=== PATIENT | male | born 1955 | race Caucasian/White ===

== ENCOUNTER → 2018-07-02 22:55 | Outpatient (CLI) | payer OTHER, SELFPAY | PROVIDERS: Family Provider Family Medicine; PCP Family Medicine; Visit Provider Nurse Practitioner | DX: E03.9 Hypothyroidism, unspecified (principal); E78.5 Hyperlipidemia, unspecified ==

== ENCOUNTER → 2018-07-08 20:56 | Outpatient (CLI) | payer OTHER, SELFPAY ==
[2018-07-08 21:13] LABS: Absolute Lymphocyte Count 1.51 X10^3/ul (0.83-4.51); Absolute Neutrophil Count 4.2 X10^3/uL (2.0-7.7); Basophil# 0.02 X10^3/uL; Basophil% 0.3 % (0-1); Eosinophils% 1.6 % (0-5); Hematocrit 41.8 % (40-54); Hemoglobin 14.6 g/dl (13.0-16.5); Lymphocyte # 1.51 X10^3/ul (4.0); Lymphocyte % 23.4 % (19-41); Mean Corp Hgb Conc 34.9 g/gl (32-36); Mean Corpuscular Hgb 31.1 pg (27.0-32.0); Mean Corpuscular Volume 88.9 fL (80-94); Mean Platelet Vol. 9.8 fl (6.2-12.0); Monocyte# 0.63 X10^3/uL; Monocyte% 9.8 % (0-10); Neutrophil # 4.18 X10^3/uL (2.7-7.7); Neutrophil % 64.7 % (47-70); POSITIVE COUNT NO; POSITIVE DIFFERENTIAL NO; POSITIVE MORPHOLOGY NO; Platelet Count 224 K/mm3 (150-450); RBC Distribution Width SD 41.9 fl (35.1-43.9); White Blood Count 6.5 K/mm3 (4.4-11.0)
[2018-07-08 21:24] LABS: Cholesterol 137 mg/dL (200); High Density Lipoprotein 41 mg/dL; Triglycerides 197 mg/dL; Very Low Density Lipoprotein 39 mg/dL (5-40)
== END ==
PROVIDERS: Visit Provider Nurse Practitioner
DX: E78.2 Mixed hyperlipidemia (principal)
CPT/HCPCS: 80061; 85025

== ENCOUNTER → 2018-11-05 22:47 | Outpatient (CLI) | payer OTHER, SELFPAY ==
[2018-11-05 15:46] VITALS: BMI 34.4
[2018-11-05 23:28] LABS: Thyroid Stim Hormone (TSH) 2.71 uIU/mL (0.358-3.74)
== END ==
PROVIDERS: Family Provider Family Medicine; PCP Family Medicine; Referring Provider Nurse Practitioner; Visit Provider Nurse Practitioner
DX: E03.9 Hypothyroidism, unspecified (principal)
CPT/HCPCS: 84443

== ENCOUNTER 2018-12-22 05:26 | Day surgery (SDC) | payer OTHER, SELFPAY ==
[2018-11-06 14:45] VITALS: BMI 34.4
[2018-12-22] VITALS (7 sets, daily range): BP systolic 87–120; BP diastolic 60–73; PULSE 62–71; RESP 16–18; TEMP 35.9–36.4; O2SAT 91–97; BMI 32.9
--- NOTE | 2018-12-22 06:02 | PCM.HP.STD ---
Problem List (1) Screening for intestinal cancer Status: Acute History of Present Illness Date of Admission: 12/22/18 The patient is a 63 year old M who presents for screening colonoscopy. His previous colonoscopy was 10 years ago. He denies any bright red blood per rectum or melena. No abdominal pain. Claims that his stools are more of a pasty consistency but this is been chronic. He denies any acute chest cardiac or lung problems. Denies DVT. States that he otherwise is enjoying good health Past Medical History Medical History: Medical History (Last Reviewed 11/05/18 @ 14:26 by Suma Dickerson) Hyperthyroidism E05.90 Hypothyroidism E03.9 Allergies latex Allergy (Verified 12/18/18 11:23) Hives Home Medications: Ambulatory Orders Medication Instructions Recorded atorvastatin 20 mg tablet 20 mg PO DAILY 07/02/18 omega-3 fatty acids 1,000 mg 1,000 mg PO DAILY 07/02/18 capsule aspirin 81 mg tablet,delayed 81 mg PO DAILY 11/06/18 release levothyroxine 100 mcg tablet 100 mcg PO DAILY #90 tab 11/26/18 Smoking Status: Current every day smoker Tobacco Use: Chew Review of Systems Constitutional: Denies: Anorexia HEENT: Denies: Difficulty Swallowing Cardiovascular: Denies: Chest Pain, Claudication Respiratory: Denies: Cough Gastrointestinal: Denies: Abdominal Pain Genitourinary: Denies: Dysuria Neurological: Denies: Balance problems Endocrine: Denies: Change in Body Habitus VTE Information - Inpt Only VTE Present on Admission: No Patient Problems: Active and Suspected Problems (Last Reviewed 11/05/18 @ 14:26 by Suma Dickerson) Screening for intestinal cancer (Acute) - Physical Exam General: Alert, Oriented x3, Cooperative, No apparent distress HEENT: Atraumatic Oral: Moist Mucosa Neck: Supple Lungs: Clear to auscultation Cardiovascular: Regular rate, Regular Rhythm Abdomen: Bowel Sounds Present, Soft, Non Tender, Non-Distended Extremities: No Calf Tenderness Psych/Mental Status: Normal Affect Vital Signs Temp Pulse Resp BP Pulse Ox 97.5 F L 71 16 106/71 97 12/22/18 05:49 12/22/18 05:49 12/22/18 05:49 12/22/18 05:49 12/22/18 05:49 Oxygen Delivery Method Room Air Weight: 242 lb 15.19 oz Body Mass Index (BMI) 32.9 Assessment/Plan All Active Problems (Last Reviewed 11/05/18 @ 14:26 by Suma Dickerson) Screening for intestinal cancer (Acute) Acute pain of left knee (Acute) PAC (premature atrial contraction) (Acute) Hyperlipemia (Acute) Hypothyroid (Acute) I am recommending the patient a colonoscopy with possible biopsy or polypectomy as indicated. He is aware of the technique, benefits, risks, alternatives. He has had an opportunity to ask and have questions answered. He presents via our open access program. We will proceed as noted. Javier Schmitz M.D., F.A.C.S.
--- NOTE | 2018-12-22 06:30 | COLBX_PTH ---
PATIENT: SARA ORDAZ LOC: EN U#:[id number] AGE/SX: 63/M ROOM: RE12/22/[address]: Dr. Javier Schmitz MD : 1955 BED: DIS: 12/22/2018 SPEC #: [id number] RECD: 12/22/18 08:18 STATUS: CHARLA NIRMALA #: [id number] PRAVEEN: 12/22/18 06:[address]: Javier Schmitz DEPT: SURGICAL PATHOLOGY RECD BY: Mehul Carver ENTERED: 12/22/18 09:27 SP TYPE: COLON BX OT DR: Clarita Iyer, PRINTING SIGN MACHINE OPERATOR-C Tissues: Transverse colon Procedures: Surgery Specimen Level IV HEADER OPERATION: Colonoscopy - open access (MOD) PRE-OP DIAGNOSIS: Screening TISSUE SUBMITTED: Biopsy polyp distal transverse MICROSCOPIC DIAGNOSIS Polyp distal transverse colon, biopsy: Tubular adenoma. REID:[email or web address] 12/23/18 MICROSCOPIC DESCRIPTION Slides are reviewed. GROSS DESCRIPTION Received in fixative is one container labeled with the patient's name and designated biopsy polyp distal transverse. The specimen consists of one irregular fragment of light cazares soft tissue that measures 0.3 x 0.3 x 0.1 cm. The specimen is totally submitted in one cassette. / REID:[email or web address] 12/22/18 TC:1 CPT: 69205
--- NOTE | 2018-12-22 06:45 | OP.ENDO_ITS ---
Patient Name: Marino Heaton Procedure Date: 12/22/2018 6:01 AM Date of : 1955 Age: 63 Procedure: Colonoscopy Indications: Screening for colorectal malignant neoplasm Providers: Javier Schmitz MD Medicines: Midazolam 3.5 mg IV, Meperidine 100 mg IV Patient Profile: Last Colonoscopy: 10 years ago. Complications: No immediate complications. Procedure: Pre-Anesthesia Assessment: - Prior to the procedure, a History and Physical was performed, and patient medications and allergies were reviewed. The patient's tolerance of previous anesthesia was also reviewed. The risks and benefits of the procedure and the sedation options and risks were discussed with the patient. All questions were answered, and informed consent was obtained. Prior Anticoagulants: The patient has taken no previous anticoagulant or antiplatelet agents. ASA Grade Assessment: II - A patient with mild systemic disease. After reviewing the risks and benefits, the patient was deemed in satisfactory condition to undergo the procedure. After I obtained informed consent, the scope was passed under direct vision. Throughout the procedure, the patient's blood pressure, pulse, and oxygen saturations were monitored continuously. The adult colonoscope was introduced through the anus and advanced to the cecum, identified by appendiceal orifice and ileocecal valve. The colonoscopy was performed without difficulty. The patient tolerated the procedure well. The quality of the bowel preparation was good. The ileocecal valve and the appendiceal orifice were photographed. Moderate Sedation: Moderate (conscious) sedation was personally administered by the endoscopist. The following parameters were monitored: oxygen saturation, heart rate, blood pressure, and response to care. Total physician intraservice time was 15 minutes. Scope In: 6:26:08 AM Scope Withdrawal Time 0 hours 10 minutes 49 seconds Scope Out: 6:41:40 AM Total Procedure Duration Time 0 hours 15 minutes 32 seconds Findings: The perianal and digital rectal examinations were normal. Pertinent negatives include normal prostate (size, shape, and consistency). A 3 mm polyp was found in the distal transverse colon. The polyp was sessile. The polyp was removed with a cold biopsy forceps. Resection and retrieval were complete. Multiple diverticula were found in the sigmoid colon and descending colon. The exam was otherwise without abnormality. Impression: - One 3 mm polyp in the distal transverse colon, removed with a cold biopsy forceps. Resected and retrieved. - Diverticulosis in the sigmoid colon and in the descending colon. - The examination was otherwise normal. Recommendation: - Discharge patient to home. - Resume previous diet. - Repeat colonoscopy in 5 years for surveillance based on pathology results. - Telephone my office for pathology results in 1 week. - Continue present medications. Procedure Code(s): --- Professional --- 31123, Colonoscopy, flexible; with biopsy, single or multiple 97290, 59, Moderate sedation services provided by the same physician or other qualified health ambulatory care performing the diagnostic or therapeutic service that the sedation supports, requiring the presence of an independent trained observer to assist in the monitoring of the patient's level of consciousness and physiological status; initial 15 minutes of intraservice time, patient age 5 years or older Diagnosis Code(s): --- Professional --- Z12.11, Encounter for screening for malignant neoplasm of colon D12.3, Benign neoplasm of transverse colon (hepatic flexure or splenic flexure) K57.30, Diverticulosis of large intestine without perforation or abscess without bleeding CPT copyright 2017 [employer]. All rights reserved. The codes documented in this report are preliminary and upon solar installer pv review may be revised to meet current compliance requirements. Javier Schmitz MD 12/22/2018 6:45:44 AM This report has been signed electronically. Number of Addenda: 0 Note Initiated On: 12/22/2018 6:01 AM
== END 2018-12-22 07:23 | disposition home or self-care (01) ==
LOC: EN 05:27 → AC 05:27
PROVIDERS: Family Provider Nurse Practitioner; PCP Nurse Practitioner; Referring Provider Surgery; Visit Provider Surgery
PROC: 0DJD8ZZ Inspection of Lower Intestinal Tract, Via Natural or Artificial Opening Endoscopic (ICD-10-PCS; CPT 45378; principal; 2018-12-22 06:25)
DX: Z12.11 Encounter for screening for malignant neoplasm of colon (principal); D12.3 Benign neoplasm of transverse colon; K57.30 Diverticulosis of large intestine without perforation or abscess without bleeding; I49.1 Atrial premature depolarization; E78.5 Hyperlipidemia, unspecified; E03.9 Hypothyroidism, unspecified; Z79.82 Long term (current) use of aspirin; Z79.899 Other long term (current) drug therapy; F17.220 Nicotine dependence, chewing tobacco, uncomplicated
CPT/HCPCS: 45380; 88305; 99152; 99153; J7120

== ENCOUNTER → 2019-01-04 22:45 | Outpatient (CLI) | payer OTHER, SELFPAY ==
[2018-12-22 05:49] VITALS: BMI 32.9
[2019-01-04 23:00] LABS: Cholesterol 162 mg/dL (200); High Density Lipoprotein 35 mg/dL; Triglycerides 356 mg/dL; Very Low Density Lipoprotein 71 mg/dL (5-40)
== END ==
PROVIDERS: Family Provider Nurse Practitioner; PCP Nurse Practitioner; Referring Provider Nurse Practitioner; Visit Provider Nurse Practitioner
DX: E78.5 Hyperlipidemia, unspecified (principal)
CPT/HCPCS: 80061

== ENCOUNTER → 2019-02-11 21:52 | Outpatient (CLI) | payer OTHER, SELFPAY ==
[2019-02-11 18:52] VITALS: BMI 32.9
[2019-02-11 22:14] LABS: Thyroid Stim Hormone (TSH) 3.06 uIU/mL (0.358-3.74)
== END ==
PROVIDERS: Family Provider Nurse Practitioner; PCP Nurse Practitioner; Referring Provider Nurse Practitioner; Visit Provider Nurse Practitioner
DX: E03.9 Hypothyroidism, unspecified (principal)
CPT/HCPCS: 84443

== ENCOUNTER → 2019-03-23 | Outpatient (CLI) | payer OTHER, SELFPAY ==
[2019-02-11 18:52] VITALS: BMI 32.9
[2019-03-23 23:56] LABS: Thyroid Stim Hormone (TSH) 2.98 uIU/mL (0.358-3.74)
== END | disposition home or self-care (01) ==
PROVIDERS: Family Provider Nurse Practitioner; PCP Nurse Practitioner; Referring Provider Nurse Practitioner; Visit Provider Nurse Practitioner
DX: E03.9 Hypothyroidism, unspecified (principal)
CPT/HCPCS: 84443

== ENCOUNTER → 2019-11-23 21:30 | Outpatient (CLI) | payer OTHER, SELFPAY ==
[2019-11-23 16:12] VITALS: BMI 35.1
[2019-11-23 21:50] LABS: Absolute Lymphocyte Count 1.26 X10^3/uL (0.83-4.51); Absolute Neutrophil Count 4.5 X10^3/uL (2.0-7.7); Basophil# 0.03 X10^3/uL; Basophil% 0.5 % (0-1); Eosinophil# 0.07 X10^3/uL; Eosinophils% 1.1 % (0-5); Hematocrit 41.1 % (40-54); Lymphocyte # 1.26 X10^3/ul (4.0); Lymphocyte % 19.4 % (19-41); Mean Corp Hgb Conc 34.1 g/dL (32-36); Mean Corpuscular Hgb 29.9 pg (27.0-32.0); Mean Corpuscular Volume 87.6 fL (80-94); Mean Platelet Vol. 10.8 fl (6.2-12.0); Monocyte% 9.3 % (0-10); NRBC Flagged by Analyzer 0 % (0-5); Neutrophil % 69.4 % (47-70); Platelet Count 211 K/mm3 (150-450); RBC Distribution Width CV 12.6 % (11.6-14.6); RBC Distribution Width SD 40.4 fl (35.1-43.9); Red Blood Count 4.69 M/mm3 (4.6-6.2); White Blood Count 6.5 K/mm3 (4.4-11.0)
[2019-11-23 22:11] LABS: ALB/GLOB Ratio 1.2 RATIO (0.9-2.4); AST(SGOT) 14 U/L (15-37); Alanine Aminotransfer ALT/SGPT 31 U/L (16-61); Albumin, Serum 3.8 g/dL (3.2-5.0); Alkaline Phosphatase 98 U/L (45-117); Anion Gap 5 (5-15); BUN 20 mg/dL (7-18); BUN/Creat Ratio 16.9 RATIO (10-20); Chloride 108 mmol/L (98-107); Cholesterol 154 mg/dL (200); Creatinine, Serum 1.18 mg/dL (0.70-1.30); EST Glomerular Filtration Rate 66 mL/min (>60); Est Glom Filt Rate - Afr Amer 80 mL/min (>60); Globulin 3.3 g/dL (2.2-4.2); Glucose 95 mg/dL (74-106); High Density Lipoprotein 41 mg/dL; Potassium 4.3 mmol/L (3.5-5.1); Protein, Total 7.1 g/dL (6.4-8.2); Sodium Level 140 mmol/L (136-145); Thyroid Stim Hormone (TSH) 5.72 uIU/mL (0.358-3.74); Triglycerides 131 mg/dL; Very Low Density Lipoprotein 26 mg/dL (5-40)
== END ==
PROVIDERS: Family Provider Nurse Practitioner; PCP Nurse Practitioner; Referring Provider Nurse Practitioner; Visit Provider Nurse Practitioner
DX: E03.9 Hypothyroidism, unspecified (principal); E78.5 Hyperlipidemia, unspecified; R35.0 Frequency of micturition
CPT/HCPCS: 80053; 80061; 84153; 84443; 85025; G0103

== ENCOUNTER → 2020-01-05 | Outpatient (CLI) | payer OTHER, SELFPAY ==
[2020-01-05 15:45] VITALS: BMI 34.4
[2020-01-05 22:44] LABS: Thyroid Stim Hormone (TSH) 1.13 uIU/mL (0.358-3.74)
== END | disposition home or self-care (01) ==
PROVIDERS: PCP Nurse Practitioner; Referring Provider Nurse Practitioner; Visit Provider Nurse Practitioner
DX: E03.9 Hypothyroidism, unspecified (principal)
CPT/HCPCS: 84443

== ENCOUNTER → 2020-12-14 | Outpatient (CLI) | payer OTHER, SELFPAY ==
[2015-06-17 19:37] VITALS: BMI 27.1
[2020-12-14 22:42] LABS: Absolute Lymphocyte Count 1.34 X10^3/uL (0.83-4.51); Absolute Neutrophil Count 5.1 X10^3/uL (2.0-7.7); Basophil# 0.04 X10^3/uL; Basophil% 0.6 % (0-1); Eosinophil# 0.08 X10^3/uL; Eosinophils% 1.1 % (0-5); Hematocrit 43.4 % (40-54); Hemoglobin 14.4 g/dL (13.0-16.5); Lymphocyte # 1.34 X10^3/ul (4.0); Lymphocyte % 18.8 % (19-41); Mean Corp Hgb Conc 33.2 g/dL (32-36); Mean Corpuscular Hgb 29.3 pg (27.0-32.0); Mean Corpuscular Volume 88.4 fL (80-94); Mean Platelet Vol. 10.5 fl (6.2-12.0); Monocyte# 0.61 X10^3/uL; Monocyte% 8.5 % (0-10); NRBC Flagged by Analyzer 0 % (0-5); Neutrophil # 5.06 X10^3/uL (2.7-7.7); Neutrophil % 70.9 % (47-70); Platelet Count 235 K/mm3 (150-450); RBC Distribution Width CV 12.4 % (11.6-14.6); RBC Distribution Width SD 40.4 fl (35.1-43.9); Red Blood Count 4.91 M/mm3 (4.6-6.2); White Blood Count 7.1 K/mm3 (4.4-11.0)
[2020-12-14 23:06] LABS: ALB/GLOB Ratio 1.3 RATIO (0.9-2.4); AST(SGOT) 20 U/L (15-37); Alanine Aminotransfer ALT/SGPT 37 U/L (16-61); Albumin, Serum 3.9 g/dL (3.2-5.0); Alkaline Phosphatase 106 U/L (45-117); Anion Gap 5 (5-15); BUN 21 mg/dL (7-18); BUN/Creat Ratio 16.9 RATIO (10-20); Calcium,Total 8.6 mg/dL (8.5-10.1); Chloride 108 mmol/L (98-107); Cholesterol 165 mg/dL (200); Creatinine, Serum 1.24 mg/dL (0.70-1.30); EST Glomerular Filtration Rate 63 mL/min (>60); Est Glom Filt Rate - Afr Amer 76 mL/min (>60); Globulin 3.1 g/dL (2.2-4.2); Glucose 91 mg/dL (74-106); High Density Lipoprotein 41 mg/dL; Potassium 3.9 mmol/L (3.5-5.1); Sodium Level 140 mmol/L (136-145); Thyroid Stim Hormone (TSH) 1.29 uIU/mL (0.358-3.74); Triglycerides 99 mg/dL; Very Low Density Lipoprotein 20 mg/dL (5-40)
== END | disposition home or self-care (01) ==
PROVIDERS: PCP Family Medicine; Referring Provider Nurse Practitioner; Visit Provider Nurse Practitioner
DX: E78.5 Hyperlipidemia, unspecified (principal); E03.9 Hypothyroidism, unspecified
CPT/HCPCS: 80053; 80061; 84443; 85025

== ENCOUNTER → 2021-09-12 | Outpatient (CLI) | payer OTHER, SELFPAY ==
[2021-09-12 00:08] LABS: Absolute Lymphocyte Count 1.73 X10^3/uL (0.83-4.51); Absolute Neutrophil Count 5.4 X10^3/uL (2.0-7.7); Basophil# 0.04 X10^3/uL; Basophil% 0.5 % (0-1); Eosinophil# 0.08 X10^3/uL; Hematocrit 40.1 % (40-54); Hemoglobin 13.6 g/dL (13.0-16.5); Lymphocyte # 1.73 X10^3/ul (0.83-4.51); Lymphocyte % 21.8 % (19-41); Mean Corp Hgb Conc 33.9 g/dL (32-36); Mean Corpuscular Volume 88.5 fL (80-94); Mean Platelet Vol. 10.7 fl (6.2-12.0); Monocyte# 0.64 X10^3/uL; Monocyte% 8.1 % (0-10); NRBC Flagged by Analyzer 0 % (0-5); Neutrophil # 5.41 X10^3/uL (2.7-7.7); Neutrophil % 68.3 % (47-70); Platelet Count 189 K/mm3 (150-450); RBC Distribution Width CV 12.9 % (11.6-14.6); RBC Distribution Width SD 42.1 fl (35.1-43.9); Red Blood Count 4.53 M/mm3 (4.6-6.2); White Blood Count 7.9 K/mm3 (4.4-11.0)
[2021-09-12 02:14] LABS: AST(SGOT) 17 U/L (15-37); Alanine Aminotransfer ALT/SGPT 21 U/L (16-61); Albumin, Serum 3.3 g/dL (3.2-5.0); Alkaline Phosphatase 110 U/L (45-117); Anion Gap 6 (5-15); BUN 17 mg/dL (7-18); BUN/Creat Ratio 13.8 RATIO (10-20); Calcium,Total 8.7 mg/dL (8.5-10.1); Chloride 107 mmol/L (98-107); Cholesterol 146 mg/dL (200); Creatinine, Serum 1.23 mg/dL (0.70-1.30); EST Glomerular Filtration Rate 63 mL/min (>60); Est Glom Filt Rate - Afr Amer 76 mL/min (>60); Globulin 3.3 g/dL (2.2-4.2); Glucose 119 mg/dL (74-106); High Density Lipoprotein 34 mg/dL; Potassium 3.8 mmol/L (3.5-5.1); Protein, Total 6.6 g/dL (6.4-8.2); Sodium Level 139 mmol/L (136-145); Thyroid Stim Hormone (TSH) 1.36 uIU/mL (0.358-3.74); Triglycerides 155 mg/dL; Very Low Density Lipoprotein 31 mg/dL (5-40)
== END ==
PROVIDERS: PCP Nurse Practitioner; Referring Provider Nurse Practitioner; Visit Provider Nurse Practitioner
DX: E78.5 Hyperlipidemia, unspecified (principal); E03.9 Hypothyroidism, unspecified; R00.2 Palpitations; R06.02 Shortness of breath
CPT/HCPCS: 80053; 80061; 84443; 85025; 86141

== ENCOUNTER → 2021-09-13 11:34 | Outpatient (CLI) | payer OTHER, SELFPAY ==
--- NOTE | 2021-09-13 11:38 | RAD_ITS ---
STUDY: X-RAY CHEST REASON FOR EXAM: Male, 66 years old. Angina pectoris / shortness of breath TECHNIQUE: PA and lateral views of the chest. COMPARISON: None. FINDINGS: The lungs are clear and expanded. There is no demonstrated pleural abnormality. Normal size heart. Normal mediastinum and ean. Normal visualized pulmonary arteries. Normal visualized aortic arch and descending thoracic aorta. Normal visualized thoracic spine. Normal visualized ribs, clavicles, and shoulders. There is no demonstrated abnormality of the visualized soft tissue structures of the upper abdomen. RAD/Chest PA and Lateral IMPRESSION: Normal x-ray examination of the chest. Electronically Signed: Boris De Souza MD at 16:51 EDT , Service support ,
[2021-09-13 12:27] LABS: Partial Thromboplast Time 30.7 Seconds (24.1-36.2); Prothrombin Time (Protime)PT. 12.9 SECONDS (11.7-14.9)
== END ==
PROVIDERS: PCP Nurse Practitioner; Referring Provider Internal Medicine Cardiovascular Disease; Visit Provider Internal Medicine Cardiovascular Disease
DX: E78.5 Hyperlipidemia, unspecified (principal); I20.9 Angina pectoris, unspecified; I49.1 Atrial premature depolarization; R00.2 Palpitations; R06.02 Shortness of breath; R94.31 Abnormal electrocardiogram [ECG] [EKG]
CPT/HCPCS: 36415; 71046; 85610; 85730

== ENCOUNTER 2021-09-19 15:22 | Inpatient (IN) | payer OTHER, SELFPAY ==
[2021-09-18 08:14] VITALS: BMI 33.5
--- NOTE | 2021-09-18 17:51 | HP.PCM_ITS ---
History and Physical Date of Admission: 09/19/21 [facility] [address] [place] [address] [id number] OFFICE VISITDate of Service: 09/13/21 MR#:[id number]:[id number]: SARA ORDAZ [facility] #:[id number] Provider:Dr. Edilberto Wolff, MDAge/Sex: 66/M Loc ation:BMS.WHGStatus:Signed HPI HPI History of Present Illness Surgical H&P: Yes Details: -year-old white male who presents today for outpatient cardiovascular consultation based upon concerns ofThis is a 66 shortness of breath/dyspnea on exertion and associated chest discomfort concerning for angina pectoris superimposed upon a history of hyperlipidemia. He states that in assisted he has been busier now than he was when he was working. He notes that he has been feeling well until just recently. Recently he was outside doing [employer]. He states with very minimal activity he noted shortness of breath and dyspnea with associated left-sided left pectoral chest discomfort. He was able to complete his work but had to stop and rest. He states after resting he felt better. He notes the following day he went to assist a friend of his with similar activities. He states he did not work as hard as he did the day before but had the same symptoms. He denies any orthopnea or PND or peripheral pitting edema. There was no near syncope or syncope. He does state he has a irregular heartbeat. He states he has had this all his life. He went to his PCP group/nurse practitioner. He had laboratory studies performed which demonstrated an elevated CRP of 22. An ECG was performed and repeated sinus rhythm which appeared to demonstrate with T wave abnormality compatible with anterolateral myocardial ischemia. He was subsequently referred for further cardiovascular evaluation. He states he has been taking aspirin at home Based upon his recent labs he has total cholesterol is 146 as well as his lipid- lowering medical therapy with atorvastatin. with an LDL of 81 and an HDL of 34. His triglycerides were 155. with PACs He had a repeat ECG in the office today. He was noted to be in sinus rhythm with T wave changes again concerning for myocardial ischemia in the anterior distribution. Intake Vital Signs 09/13/21 10:00 Height 6 ft Weight: 247 lb 9 oz BMI 33.5 BP 132/62 H Blood Pressure Location Lt brachial Position Sitting Respiration 18 Pulse 68 Pulse Source Auscultation Intake Visit Reasons: SOB/PVC's/Ref. Clarita Iyer Director Of Institutional Giving Required: No Accompanied by: Self Allergies latex Allergy (Verified 09/13/21 10:00) Hives Medications omega-3 fatty acids 1,000 mg capsule 1,000 mg PO DAILY 07/02/18 [History Confirmed 09/13/21] aspirin 81 mg tablet,delayed release 81 mg PO DAILY 11/06/18 [History Confirmed 09/13/21] atorvastatin 20 mg tablet 20 mg PO DAILY #90 tab 07/25/21 [Rx Confirmed 09/13/21] levothyroxine 125 mcg tablet 125 mcg PO DAILY #90 tab 07/25/21 [Rx Confirmed 09/13/21] ascorbic acid (vitamin C) 1,000 mg tablet 1 g PO DAILY tab 09/13/21 [History Confirmed 09/13/21] cholecalciferol (vitamin D3) 50 mcg (2,000 unit) tablet 50 mcg PO DAILY 09/13/21 [History Confirmed 09/13/21] clopidogrel 75 mg tablet 75 mg PO DAILY #30 tab 09/13/21 [Rx Confirmed 09/13/21] coenzyme Q10 100 mg tablet 100 mg PO DAILY 09/13/21 [History Confirmed 09/13/21] isosorbide mononitrate 30 mg tablet,extended release 24 hr 30 mg PO DAILY #30 tab 09/13/21 [Rx Confirmed 09/13/21] metoprolol tartrate 25 mg tablet 25 mg PO BID #60 tab 09/13/21 [Rx Confirmed 09/13/21] PENDING SALE TO [facility] Medical History (Updated 09/13/21 @ 11:[address] Edilberto Wolff MD) Abnormal electrocardiogram Angina pectoris Hyperlipidemia Hyperthyroidism Hypothyroid Hypothyroidism Family History Father Myocardial infarction CAD (coronary artery disease) Other Alzheimer's dementia NEUROPATHY NON DM Social History Smoking Status: Former smoker Smokeless tobacco user: chewing tobacco alcohol intake: never substance use type: does not use caffeine: Yes Type: coffee Number of servings: 1 ROS Const Const: Negative for fatigue, weakness, frequent falls, excessive sweating, weight gain or weight loss Eyes Eyes: Negative for transient loss of vision, blurry vision or change in vision ENT ENT: Negative for dizziness or balance problems Cardio Chest Pain: Yes Character: dull Onset: exercise Location: left chest Duration: minutes (10-15) Palpitations: No Edema: None Muscle aches with walking: None Resp Respiratory: Positive for SOB with activity (New onset; doing landscape at home); Negative for SOB at rest GI GI: Negative vomiting or vomiting blood/hematemesis : Negative for hematuria Musc Musc: Negative for muscle aches/ myalgia, muscle weakness, joint pain or balance problems Skin Skin: Negative non-healing lesions or rash Neuro Neuro: Negative for dizziness, lightheadedness, orthostatic symptoms, frequent falls, weakness or blurry vision Johnny Hematologic/Lymphatic: Negative for easy bleeding Endo Endo: Negative for fatigue or excessive sweating Psych Psych: Negative for anxiety or depression Allergy Allergy/Immunology: Negative for hives and Negative for rash Cardiology Exam Const Appearance: cooperative, healthy appearing, comfortable, no acute distress, well developed and well groomed Nutritional Appearance: overweight Orientation: alert, awake and oriented x3 Head Head: normal to inspection, normocephalic and atraumatic Ears: hearing grossly normal bilaterally Nose: external nose normal Face and Sinus: face symmetric Eyes Eyelids: eyelids normal Conjunctivae: conjunctivae normal Pupils: PERRL EOM: EOM intact bilaterally Neck Neck: normal visual inspection Carotids: normal carotid upstroke Chest Chest inspection: normal inspection of the chest, symmetric chest movement and normal respiratory effort Auscultation: Bilateral: Clear to Auscultation Cardio Palpation: normal PMI Rate: regular rate Rhythm: regular rhythm Heart sounds: S1 normal and S2 normal GI GI: normal to inspection, soft and bowel sounds present Neuro General: patient alert, patient awake, patient oriented x3 and moves all extremities Skin Skin: no rashes or lesions noted Extremities Pulses: Normal: Right Radial Pulse and Left Radial Pulse Lower Extremity Edema: None: Bilateral Psych Psychological: normal affect Supplemental Info Supplemental Information Labs: LDL Cholesterol 81 mg/dL (0-130) HDL Cholesterol 34 mg/dL (40-) L Triglycerides 155 mg/dL (-199) VLDL Cholesterol 31 mg/dL (5-40) Diagnostics: Electrocardiogram Pulmonary: No Data to Display Assessment and Plan Assessment and Plan (1) Angina pectoris: Status: Acute Orders: Orders: Left Heart Cath/COR/LV Percut Today Partial Thromboplast Time Today Prothrombin Time w/INR Today Chest PA and Lateral Today Echo Complete Today Plan - Dr. Edilberto Wolff MD: The patient has symptoms concerning for accelerating angina pectoris. He does have underlying cardiovascular risk factors which include hyperlipidemia. He does have an elevated CRP. He also has abnormal ECGs. At the present time would be recommended the patient initiate medical therapy which will include his aspirin therapy, the addition of nitrates, beta-blockers, and continuation of his statin therapy. It was also recommended he undergo further evaluation of his left ventricular wall motion and systolic function with a transthoracic echocardiogram. Based upon his clinical course it was recommended he consider further evaluation with diagnostic cardiac catheterization. The procedure and risk were discussed with him. He was agreeable to this approach. In anticipation of this procedure and the potential need for PCI he will also be started on clopidogrel/Plavix. (2) Palpitations: Status: Acute Orders: Orders: 12 Lead EKG performed by [facility] Today Left Heart Cath/COR/LV Percut Today Partial Thromboplast Time Today Prothrombin Time w/INR Today Chest PA and Lateral Today Echo Complete Today Plan - Dr. Edilberto Wolff MD: The patient does appear to have findings compatible with PACs. This may be the etiology of his irregular heartbeat. He will continue evaluation care as noted. (3) SOB (shortness of breath): Status: Acute Orders: Orders: Left Heart Cath/COR/LV Percut Today Partial Thromboplast Time Today Prothrombin Time w/INR Today Chest PA and Lateral Today Echo Complete Today Plan - Dr. Edilberto Wolff MD: The patient's symptoms included shortness of breath and dyspnea with exertion which can be an angina pectoris equivalent. He is not known to have any other etiology for concerns of shortness of breath or dyspnea. He will continue evaluation care as noted above. (4) PAC (premature atrial contraction): Status: Acute Orders: Orders: 12 Lead EKG performed by [facility] Today Left Heart Cath/COR/LV Percut Today Partial Thromboplast Time Today Prothrombin Time w/INR Today Chest PA and Lateral Today Echo Complete Today Plan - Dr. Edilberto Wolff MD: Again the patient has been noted to have PACs. This may be the etiology of his irregular irregular heartbeat. He will continue medical evaluation and care as described above. (5) Abnormal electrocardiogram: Status: Acute Orders: Orders: Left Heart Cath/COR/LV Percut Today Partial Thromboplast Time Today Prothrombin Time w/INR Today Chest PA and Lateral Today Echo Complete Today Plan - Dr. Edilberto Wolff MD: His electrocardiogram is concerning for myocardial ischemia in the anterior/anterolateral distribution. Based upon his symptoms and his objective findings he will continue evaluation and care as noted. (6) Hyperlipidemia: Status: Acute Orders: Orders: Left Heart Cath/COR/LV Percut Today Partial Thromboplast Time Today Prothrombin Time w/INR Today Chest PA and Lateral Today Echo Complete Today Plan - Dr. Edilberto Wolff MD: The patient's lipid labs were reviewed. He will continue medical therapy. Plan Details Other Medications: New: isosorbide mononitrate ER 30 mg PO DAILY 30 tabs 1RF clopidogrel (Plavix) 75 mg PO DAILY 30 tabs 1RF metoprolol tartrate 25 mg PO BID 60 tabs 1RF Additional Comments: Thank you for allowing me to participate in the care of your patient. Please don't hesitate to call if any issues arise. This note was generated using a voice recognition system and there may be incorrect words, spelling or punctuation that were not noted when reviewing the office note prior to saving. Follow Up: 6 Weeks (PFM) COVID (Procedure Consent) Procedure Criteria Procedure Criteria: Yes Elective The surgeon/proceduralist and patient have discussed in detail the risk of exposure to and/or potential harm posed by the COVID-19 virus with having a surgery/procedure at this time versus the risk of delaying the surgery/procedure. It is not possible to know either the risk of delaying the surgery or procedure or chance of getting an infection with perfect accuracy, but a joint decision was made between the patient and the surgeon/proceduralist to proceed at this time with the scheduled surgery/procedure as indicated on the consent form. Coding Level of Care Code Off vis,new,level 5 Diagnoses Angina pectoris I20.9 Palpitations R00.2 SOB (shortness of breath) R06.02 PAC (premature atrial contraction) I49.1 Abnormal electrocardiogram R94.31 Hyperlipidemia E78.5 Coding Level of Care Code Off vis,new,level 5 Diagnoses Angina pectoris I20.9 Palpitations R00.2 SOB (shortness of breath) R06.02 PAC (premature atrial contraction) I49.1 Abnormal electrocardiogram R94.31 Hyperlipidemia E78.5 09/13/21 1121<Electronically signed by Edilberto Wolff MD>Date Edilberto Wolff MD Cosigner Signature:Date (if applicable) CC: MARKETING SYSTEMS ANALYSTMarko Iyer ~ Assessment & Plan Addt'l Comments I have re-examined the patient. There are no clinical changes since date of exam
--- NOTE | 2021-09-19 08:43 | CASEMGMT ---
According to the MMO website, the following are in-network tertiary facilities: [facility], [facility], [facility], [facility], [facility], [facility], [facility], [facility], [facility], and . Larry CELAYA CM
--- NOTE | 2021-09-19 09:08 | ECHOD_ITS ---
Reason For Study: SOB Procedure This was a 2D Doppler, Color Flow transthoracic echocardiogram. The exam was of adequate technical quality. Exam performed in labourers holding room. Left Ventricle Borderline enlarged left ventricle. Moderate global left ventricular systolic dysfunction. The estimated ejection fraction is 30 %. Diastolic function is indeterminate. Right Ventricle Normal RV size. Normal systolic function. Atria Normal left atrium. Normal right atrium. No doppler evidence for ASD. Mitral Valve There is no mitral annular calcification. Normal mitral valve. Mild (1+) mitral valve insufficiency. Tricuspid Valve Normal tricuspid valve. Trivial tricuspid valve insufficiency. Right ventricular systolic pressure estimated to be 27 mmHg. Aortic Valve Bicuspid aortic valve. Mild focal aortic valve calcification. Trivial eccentric aortic valve insufficiency. Pulmonic Valve The pulmonic valve is not well visualized. Trivial pulmonic valve insufficiency. Great Vessels Borderline enlarged aortic root. Pericardium/Pleural No pericardial effusion. MMode/2D Measurements & Calculations LVIDd: 5.7 cm IVSd: 1.2 cm LVOT diam: 2.6 cm LVIDs: 4.3 cm LVPWd: 1.1 cm LVOT area: 5.4 cm2 RVDd: 3.8 cm FS: 23.7 % Ao root diam: 3.9 cm LAV(MOD-bp): 83.5 ml LVAd ap4: 49.0 cm2 LAV(MOD-bp) Indexed: 35.8 ml/m2 LVLd ap4: 9.5 cm LAV(MOD-sp2): 80.5 ml EDV(MOD-sp4): 205.8 ml LAV(MOD-sp4): 79.6 ml EDV(sp4-el): 214.8 ml LVAs ap4: 37.8 cm2 LVLs ap4: 8.5 cm ESV(MOD-sp4): 137.7 ml ESV(sp4-el): 142.2 ml EF(MOD-sp4): 33.1 % EF(sp4-el): 33.8 % LVAd ap2: 50.3 cm2 SV(MOD-sp4): 68.1 ml SV(MOD-sp2): 80.3 ml LVLd ap2: 9.6 cm EDV(MOD-sp2): 212.8 ml EDV(sp2-el): 222.8 ml LVAs ap2: 37.9 cm2 LVLs ap2: 8.9 cm ESV(MOD-sp2): 132.4 ml ESV(sp2-el): 136.9 ml EF(MOD-sp2): 37.8 % SV(sp4-el): 72.5 ml LA dimension(2D): 3.6 cm LA A4 area: 24.5 cm2 RA A4 area: 20.7 cm2 Doppler Measurements & Calculations MV E max sacha: 49.9 cm/sec Lat Peak E' Sacha: 12.7 cm/sec Med Peak E' Sacha: 6.1 cm/sec MV A max sacha: 65.7 cm/sec E/E' lat: 3.9 E/E' med: 8.1 MV E/A: 0.76 Ao V2 max: 138.5 cm/sec LV V1 max: 74.7 cm/sec SV(LVOT): 89.5 ml Ao max P.7 mmHg LV V1 max P.2 mmHg Ao V2 mean: 95.4 cm/sec LV V1 mean P.1 mmHg Ao mean P.1 mmHg LV V1 mean: 49.4 cm/sec Ao V2 VTI: 28.8 cm LV V1 VTI: 16.6 cm JOSY(I,D): 3.1 cm2 JOSY(V,D): 2.9 cm2 PA V2 max: 64.5 cm/sec TR max sacha: 244.9 cm/sec TR max P.0 mmHg ECHO/Echo Complete Interpretation Summary Borderline enlarged left ventricle. Moderate global left ventricular systolic dysfunction. The estimated ejection fraction is 30 %. Mild (1+) mitral valve insufficiency. Trivial tricuspid valve insufficiency. Bicuspid aortic valve. Mild focal aortic valve calcification. Trivial eccentric aortic valve insufficiency. Trivial pulmonic valve insufficiency. Borderline enlarged aortic root. Right ventricular systolic pressure estimated to be 27 mmHg. Diastolic function is indeterminate. Ordering Physician: Edilberto Wolff Referring Physician: Clarita Iyer Performed By: Aurora Grady RDCS
--- NOTE | 2021-09-19 10:31 | CL.D_ITS ---
Patient Name: SARA ORDAZ Study Date: 09/19/2021 Performing: Edilberto Wolff MD Ht: 72.04 inches 183 cm : 1955 Wt: 246.92 lbs 112 kg Age: 66 Gender: male BSA: 2.33 PROCEDURE(S) PERFORMED [id number] CLINICAL PROFILE AND INDICATIONS Indications: Worsening Angina, Suspected CAD Heart Failure: None Stress/Imaging Stress/Image Study Performed: No Angina Classification Anginal Classification w/in 2 Weeks: CCS III CAD Presentations: Unstable angina. CONCLUSIONS [facility] CAD LM: distal: hazy: 85 % stenosis RECOMMENDATIONS Risk factor modification Medical therapy Surgery consult for coronary revascularization DESCRIPTION OF PROCEDURE The patient arrived to the procedure lab. The risks and benefits of the procedure as well as a full d escription of our services here and current unavailability of surgical backup were fully explained to the patient and/or their significant other prior to the catheterization. The Timeout was completed, verifying the correct patient and procedure. The patient's procedural site was prepped and draped in the usual fashion. Local anesthetic was given subcutaneously to right radial region with Lidocaine 2% . Using a modified Seldinger technique, arterial access was obtained via the right radial artery, a 6 Fr sheath was inserted. Left Coronary Artery selective angiography was performed in multiple views u sing a 5 Fr. JL3.5 catheter. Right Coronary Artery selective angiography was then performed in multip le views using a 5 Fr. JR 4 catheter.The arterial sheath was pulled and a TR Band was applied for hem ostasis w/ 10ml air CORONARY ANGIOGRAPHY DOMINANCE: Right Dominant LEFT HEART ASSESSMENT Left Ventricular Ejection Fraction: Not assessed LEFT MAIN: mid: eccentric: 25 % Stenosis, distal: hazy: 85 % Stenosis LEFT ANTERIOR DESCENDING ARTERY: Mild luminal irregularities CIRCUMFLEX ARTERY: Mild luminal irregularities RIGHT CORONARY ARTERY: Mild luminal irregularities COMPLICATIONS No Complications PROCEDURE MEDICATIONS Versed 1 mg IV Fentanyl 50 mcg IV Oxygen: 2 L/min via nasal cannula Heparin given IA 09/19/2021 08:27:07 IV Bolus: .9 NaCl 500 ml total 09/19/2021 08:03:52 IV Fluids: .9 NaCl IV started @ 100 ml/hr 09/19/2021 08:42:58 SUMMARY OF HEMODYNAMIC DATA Time AIR REST ECG 07:14:40 AO 88/61 (73) SA 08:29:17 Signed By Edilberto Wolff MD On 09/19/2021 10:29:52 Edilberto Wolff MD
[2021-09-19 15:22] VITALS: PULSE 59
[2021-09-19 15:29] VITALS: BP 117/73; PULSE 60; RESP 18; TEMP 36.5; O2SAT 96
--- NOTE | 2021-09-19 15:30 | PCS.PANDOC ---
PANDEMIC DOCUMENTATION INITIATED: Date: 06/25/2021 Time: 190
[2021-09-19 19:00] VITALS: PULSE 69
[2021-09-19 19:31] LABS: Absolute Lymphocyte Count 1.67 X10^3/uL (0.83-4.51); Absolute Neutrophil Count 3.7 X10^3/uL (2.0-7.7); Basophil# 0.05 X10^3/uL; Basophil% 0.8 % (0-1); Eosinophil# 0.23 X10^3/uL; Eosinophils% 3.7 % (0-5); Hematocrit 38.4 % (40-54); Hemoglobin 12.9 g/dL (13.0-16.5); Lymphocyte # 1.67 X10^3/ul (0.83-4.51); Lymphocyte % 26.5 % (19-41); Mean Corp Hgb Conc 33.6 g/dL (32-36); Mean Corpuscular Hgb 29.8 pg (27.0-32.0); Mean Corpuscular Volume 88.7 fL (80-94); Mean Platelet Vol. 9.7 fl (6.2-12.0); Monocyte# 0.62 X10^3/uL; Monocyte% 9.8 % (0-10); NRBC Flagged by Analyzer 0 % (0-5); Neutrophil % 58.7 % (47-70); Platelet Count 225 K/mm3 (150-450); RBC Distribution Width CV 12.9 % (11.6-14.6); RBC Distribution Width SD 42.3 fl (35.1-43.9); Red Blood Count 4.33 M/mm3 (4.6-6.2); White Blood Count 6.3 K/mm3 (4.4-11.0)
--- NOTE | 2021-09-19 19:52 | PCM.PN.CARD ---
Subjective Subjective The the patient is awake, alert. He denies has any ongoing chest discomfort at rest or difficulty breathing. Objective Data Vital Signs: Vital Signs Temp Pulse Resp BP Pulse Ox 97.7 F L 60 18 117/73 96 09/19/21 15:29 09/19/21 15:29 09/19/21 15:29 09/19/21 15:29 09/19/21 15:29 Oxygen Delivery Method Room Air Weight: 247 lb 9 oz Body Mass Index (BMI) 33.5 Intake & Output: Intake and Output for Last 24 Hours 09/17/21 09/18/21 09/19/21 23:59 23:59 23:59 Intake Total 200 / 200 Balance 200 / 200 Lab / Micro Data Result Diagrams: 09/19/21 18:54 Labs: Laboratory Results - last 24 hr 09/19/21 18:54: WBC 6.3, RBC 4.33 L, Hgb 12.9 L, Hct 38.4 L, MCV 88.7, MCH 29.8, MCHC 33.6, RDW Std Deviation 42.3, RDW Coeff of [place] 12.9, Plt Count 225, MPV 9.7, Immature Gran % (Auto) 0.500, Neut % (Auto) 58.7, Lymph % (Auto) 26.5, [place] % (Auto) 9.8, Eos % (Auto) 3.7, Baso % (Auto) 0.8, Absolute Neuts (auto) 3.7, Absolute Lymphs (auto) 1.67, Nucleated RBC % 0 Cardiology Labs/Tests 09/19/21 18:54: WBC 6.3, RBC 4.33 L, Hgb 12.9 L, Hct 38.4 L, MCV 88.7, MCH 29.8, MCHC 33.6, Plt Count 225, MPV 9.7, Immature Gran % (Auto) 0.500, Neut % (Auto) 58.7, Lymph % (Auto) 26.5, [place] % (Auto) 9.8, Eos % (Auto) 3.7, Baso % (Auto) 0.8, Absolute Neuts (auto) 3.7, Nucleated RBC % 0 Rhythm: Sinus rhythm ECHO: As noted below Cardiac Cath: CONCLUSIONS [facility] CAD LM: distal: hazy: 85 % stenosis RECOMMENDATIONS Risk factor modification Medical therapy Surgery consult for coronary revascularization DESCRIPTION OF PROCEDURE The patient arrived to the procedure lab. The risks and benefits of the procedure as well as a full description of our services here and current unavailability of surgical backup were fully explained to the patient and/or their significant other prior to the catheterization. The Timeout was completed, verifying the correct patient and procedure. The patient's procedural site was prepped and draped in the usual fashion. Local anesthetic was given subcutaneously to right radial region with Lidocaine 2%. Using a modified Seldinger technique, arterial access was obtained via the right radial artery, a 6Fr sheath was inserted. Left Coronary Artery selective angiography was performed in multiple views using a 5 Fr. JL3.5 catheter. Right Coronary Artery selective angiography was then performed in multiple views using a 5 Fr. JR 4 catheter.The arterial sheath was pulled and a TR Band was applied for hemostasis w/ 10ml air CORONARY ANGIOGRAPHY DOMINANCE: Right Dominant LEFT HEART ASSESSMENT Left Ventricular Ejection Fraction: Not assessed LEFT MAIN: mid: eccentric: 25 % Stenosis, distal: hazy: 85 % Stenosis LEFT ANTERIOR DESCENDING ARTERY: Mild luminal irregularities CIRCUMFLEX ARTERY: Mild luminal irregularities RIGHT CORONARY ARTERY: Mild luminal irregularities Radiography Diagnostic Testing: Radiology Impression Echocardiogram 09/19/21 09:08 Interpretation Summary Borderline enlarged left ventricle. Moderate global left ventricular systolic dysfunction. The estimated ejection fraction is 30 %. Mild (1+) mitral valve insufficiency. Trivial tricuspid valve insufficiency. Bicuspid aortic valve. Mild focal aortic valve calcification. Trivial eccentric aortic valve insufficiency. Trivial pulmonic valve insufficiency. Borderline enlarged aortic root. Right ventricular systolic pressure estimated to be 27 mmHg. Diastolic function is indeterminate. Ordering Physician: Edilberto Wolff Referring Physician: Clarita Iyer Performed By: Aurora Grady RDCS Physical Exam Narrative This is a 66-year-old white male who appears to be resting comfortably at this time and in no acute distress. Const alert, oriented x3, no apparent distress and healthy appearing Orientation / Consciousness: awake HEENT normocephalic, head/scalp atraumatic and hearing grossly normal bilaterally Eyes PERRL, EOMs intact bilaterally and conjunctivae normal Neck full ROM, supple and no JVD Resp clear to auscultation bilaterally Cardio regular rate, regular rhythm, S1 normal heart sound and S2 normal heart sound GI normal to inspection, nondistended, normoactive bowel sounds Extremity no pedal edema Peripheral Pulses: Yes radial pulses present right 2+ Skin no rashes or lesions noted Psych mental status grossly normal Assessment & Plan Assessment/Plan (1) Atherosclerotic heart disease of [place] coronary artery without angina pectoris: PLAN: The patient has been found to have angiographically significant appearing CAD involving the left main coronary artery. At the present time he appears to be resting comfortably. He is being monitored. He is being placed on medical therapy which includes agents such as aspirin, anticoagulants, nitrates, beta-blockers, afterload reducing agents, and lipid-lowering agents. His case has been discussed and reviewed with Dr. Johnston at [facility] CT surgery. He has agreed to accept the patient in transfer for CABG. (2) Cardiomyopathy: PLAN: The patient does appear to have an underlying cardiomyopathy. This may be related to his underlying CAD. He will continue medical management. Hopefully after the patient receives revascularization therapy his overall LV is wall motion and systolic function will improve. If it does not then he will have to be considered for future primary prevention ICD therapy. (3) Bicuspid aortic valve: PLAN: The patient appears to have a bicuspid aortic valve on echocardiogram. It appears to be functioning appropriately at this time. It will need to be followed over time. (4) Hyperlipidemia: PLAN: The patient will continue risk factor evaluation and care. Addt'l Comments The above was discussed with the patient and his spouse and he was agreeable to this approach. This note was generated using a voice recognition system and there may be incorrect words, spelling or punctuation that were not noted when reviewing the office note prior to saving.
--- NOTE | 2021-09-19 19:58 | CDU_ITS ---
Reason For Study: Pre operative evaluation Rt. Velocities/BP Lt. Velocities/BP Prox CCA 76/16 cm/sec. Prox CCA 80.6/16.2 cm/sec. Mid CCA 82.6/20 cm/sec. Mid CCA 82.5/23.9 cm/sec. Dist CCA 74.7/21.3 cm/sec. Dist CCA 60.4/16 cm/sec. Prox ICA 64.3/14.7 cm/sec. Prox ICA 68.4/15.7 cm/sec. Mid ICA 86.5/27.8 cm/sec. Mid ICA 83.8/38.8 cm/sec. Dist ICA 85.1/29.1 cm/sec. Dist ICA 88.8/34.8 cm/sec. Rt. ICA/CCA = 1.14. Lt. ICA/CCA = 1.10. Prox ECA 107.3/4.3 cm/sec. Prox ECA 68.5/13.5 cm/sec. Rt. Vert. 63/14.7 cm/sec. Lt. Vert. 55.6/20 cm/sec. Right Extracranial There is homogeneous, smooth atherosclerotic plaque noted in the right common carotid artery. There is heterogeneous, smooth atherosclerotic plaque noted in the right internal carotid artery. There is homogeneous, smooth atherosclerotic plaque noted in the right external carotid artery. Antegrade flow is noted in the right vertebral artery. Left Extracranial There is intimal thickening but no significant atherosclerotic plaque noted in the left common carotid artery. There is heterogeneous, smooth atherosclerotic plaque noted in the left internal carotid artery. There is intimal thickening but no significant atherosclerotic plaque noted in the left external carotid artery. Antegrade flow is noted in the left vertebral artery. Procedure Carotid Duplex 95661. This is a Carotid Duplex examination using B-mode, color flow and specral Doppler. Exam performed portable in patient room. VL/Carotid Duplex Ultrasound Interpretation Summary Smooth plaque in the proximal right internal carotid artery with less than 50% stenosis Less than 50% stenosis right external carotid artery Smooth plaque at the proximal left internal carotid artery with less than 50% s tenosis Less than 50% stenosis left external carotid artery Patent antegrade vertebral arteries bilaterally Ordering Physician: Edilberto Wolff Referring Physician: Clarita Iyer Performed By: Kelly Yanez RVT
[2021-09-19 20:03] LABS: Prothrombin Time (Protime)PT. 12.7 SECONDS (11.7-14.9)
[2021-09-19 20:04] LABS: Partial Thromboplast Time 31.6 Seconds (24.1-36.2)
[2021-09-19] MEDS: HEPARIN/D5w 25,000 UNITS 25,000 UNITS/250 ML IV.SOLN. 15 UNITS IV (20:20)
[2021-09-19 20:31] VITALS: PULSE 84
[2021-09-19] MEDS: Metoprolol Tartrate 25 MG Tablet PO (20:31)
[2021-09-19] MEDS: Atorvastatin Calcium 80 MG Tablet PO (20:31)
[2021-09-19] MEDS: Lisinopril 5 MG Tablet PO (20:31)
[2021-09-19 21:30] VITALS: BP 145/75; PULSE 84; RESP 14; TEMP 37.1; O2SAT 95
[2021-09-20] VITALS (10 sets, daily range): BP systolic 100–128; BP diastolic 58–81; PULSE 41–80; RESP 16–18; TEMP 36.5–36.9; O2SAT 94–95
[2021-09-20 02:43] LABS: Absolute Lymphocyte Count 1.74 X10^3/uL (0.83-4.51); Absolute Neutrophil Count 3.4 X10^3/uL (2.0-7.7); Basophil# 0.04 X10^3/uL; Basophil% 0.7 % (0-1); Eosinophil# 0.19 X10^3/uL; Eosinophils% 3.2 % (0-5); Hematocrit 37.3 % (40-54); Hemoglobin 12.6 g/dL (13.0-16.5); Lymphocyte # 1.74 X10^3/ul (0.83-4.51); Lymphocyte % 29.3 % (19-41); Mean Corp Hgb Conc 33.8 g/dL (32-36); Mean Corpuscular Hgb 29.6 pg (27.0-32.0); Mean Corpuscular Volume 87.8 fL (80-94); Mean Platelet Vol. 9.6 fl (6.2-12.0); Monocyte# 0.54 X10^3/uL; Monocyte% 9.1 % (0-10); NRBC Flagged by Analyzer 0 % (0-5); Neutrophil % 57.4 % (47-70); Platelet Count 203 K/mm3 (150-450); RBC Distribution Width CV 12.7 % (11.6-14.6); RBC Distribution Width SD 40.4 fl (35.1-43.9); Red Blood Count 4.25 M/mm3 (4.6-6.2); White Blood Count 5.9 K/mm3 (4.4-11.0)
[2021-09-20 02:53] LABS: Partial Thromboplast Time 84.5 Seconds (24.1-36.2)
[2021-09-20 03:11] LABS: Anion Gap 6 (5-15); BUN 15 mg/dL (7-18); BUN/Creat Ratio 16.1 RATIO (10-20); Calcium,Total 8.6 mg/dL (8.5-10.1); Chloride 111 mmol/L (98-107); Creatinine, Serum 0.93 mg/dL (0.70-1.30); EST Glomerular Filtration Rate 87 mL/min (>60); Est Glom Filt Rate - Afr Amer 105 mL/min (>60); Estimated Creatinine Clearance 88.08 ml/min; Glucose 117 mg/dL (74-106); Potassium 3.9 mmol/L (3.5-5.1); Sodium Level 142 mmol/L (136-145)
[2021-09-20] MEDS: Levothyroxine 125 MCG Tablet PO (06:13)
--- NOTE | 2021-09-20 08:22 | PN.CARD_ITS ---
Subjective Subjective The patient is awake and alert. He denies any ongoing chest discomfort at rest. He states that during this past summer he did note episodes where he felt as if his heart rate may have gone faster for a matter of seconds at different times. He has had no recurrent symptoms since that time. Objective Data Vital Signs: Vital Signs Temp Pulse Resp BP Pulse Ox 98.2 F 41 L 18 128/75 H 95 09/20/21 02:48 09/20/21 06:37 09/20/21 02:48 09/20/21 02:48 09/20/21 02:48 Oxygen Delivery Method Room Air Weight: 247 lb 9 oz Body Mass Index (BMI) 33.5 Intake & Output: Intake and Output for Last 24 Hours 09/18/21 09/19/21 09/20/21 23:59 23:59 23:59 Intake Total 200 / 200 98.75 / 98.75 Balance 200 / 200 98.75 / 98.75 Lab / Micro Data Result Diagrams: 09/20/21 02:35 09/20/21 02:35 Labs: Laboratory Results - last 24 hr 09/19/21 18:54: WBC 6.3, RBC 4.33 L, Hgb 12.9 L, Hct 38.4 L, MCV 88.7, MCH 29.8, MCHC 33.6, RDW Std Deviation 42.3, RDW Coeff of Belén 12.9, Plt Count 225, MPV 9.7, Immature Gran % (Auto) 0.500, Neut % (Auto) 58.7, Lymph % (Auto) 26.5, [place] % (Auto) 9.8, Eos % (Auto) 3.7, Baso % (Auto) 0.8, Absolute Neuts (auto) 3.7, Absolute Lymphs (auto) 1.67, Nucleated RBC % 0 09/19/21 18:54: PT 12.7, INR 1.0, APTT 31.6 09/20/21 02:35: WBC 5.9, RBC 4.25 L, Hgb 12.6 L, Hct 37.3 L, MCV 87.8, MCH 29.6, MCHC 33.8, RDW Std Deviation 40.4, RDW Coeff of Belén 12.7, Plt Count 203, MPV 9.6, Immature Gran % (Auto) 0.300, Neut % (Auto) 57.4, Lymph % (Auto) 29.3, [place] % (Auto) 9.1, Eos % (Auto) 3.2, Baso % (Auto) 0.7, Absolute Neuts (auto) 3.4, Absolute Lymphs (auto) 1.74, Nucleated RBC % 0 09/20/21 02:35: Sodium 142, Potassium 3.9, Chloride 111 H, Carbon Dioxide 25.0, Anion Gap 6, BUN 15, Creatinine 0.93, Estim Creat Clear Calc 88.08, Est GFR (MDRD) Af Amer 105, Est GFR (MDRD) Non-Af 87, BUN/Creatinine Ratio 16.1, Glucose 117 H, Calcium 8.6 09/20/21 02:35: APTT 84.5 H Cardiology Labs/Tests 09/19/21 18:54: WBC 6.3, RBC 4.33 L, Hgb 12.9 L, Hct 38.4 L, MCV 88.7, MCH 29.8, MCHC 33.6, Plt Count 225, MPV 9.7, Immature Gran % (Auto) 0.500, Neut % (Auto) 58.7, Lymph % (Auto) 26.5, [place] % (Auto) 9.8, Eos % (Auto) 3.7, Baso % (Auto) 0.8, Absolute Neuts (auto) 3.7, Nucleated RBC % 0 09/19/21 18:54: PT 12.7, INR 1.0, APTT 31.6 09/20/21 02:35: WBC 5.9, RBC 4.25 L, Hgb 12.6 L, Hct 37.3 L, MCV 87.8, MCH 29.6, MCHC 33.8, Plt Count 203, MPV 9.6, Immature Gran % (Auto) 0.300, Neut % (Auto) 57.4, Lymph % (Auto) 29.3, [place] % (Auto) 9.1, Eos % (Auto) 3.2, Baso % (Auto) 0.7, Absolute Neuts (auto) 3.4, Nucleated RBC % 0 09/20/21 02:35: Sodium 142, Potassium 3.9, Chloride 111 H, Carbon Dioxide 25.0, Anion Gap 6, BUN 15, Creatinine 0.93, Est GFR (MDRD) Af Amer 105, Est GFR (MDRD) Non-Af 87, BUN/Creatinine Ratio 16.1, Glucose 117 H, Calcium 8.6 09/20/21 02:35: APTT 84.5 H Rhythm: Sinus rhythm/sinus bradycardia Radiography Diagnostic Testing: Radiology Impression Echocardiogram 09/19/21 09:08 Interpretation Summary Borderline enlarged left ventricle. Moderate global left ventricular systolic dysfunction. The estimated ejection fraction is 30 %. Mild (1+) mitral valve insufficiency. Trivial tricuspid valve insufficiency. Bicuspid aortic valve. Mild focal aortic valve calcification. Trivial eccentric aortic valve insufficiency. Trivial pulmonic valve insufficiency. Borderline enlarged aortic root. Right ventricular systolic pressure estimated to be 27 mmHg. Diastolic function is indeterminate. Ordering Physician: Edilberto Wolff Referring Physician: Clarita Iyer Performed By: Aurora Grady RDCS Physical Exam Narrative This is a 66-year-old white male who appears to be resting comfortably at this time and in no acute distress. Const alert, oriented x3, no apparent distress and healthy appearing Orientation / Consciousness: awake HEENT normocephalic, head/scalp atraumatic and hearing grossly normal bilaterally Eyes PERRL, EOMs intact bilaterally and conjunctivae normal Neck full ROM, supple and no JVD Resp clear to auscultation bilaterally Cardio regular rate, regular rhythm, S1 normal heart sound and S2 normal heart sound GI normal to inspection, nondistended, normoactive bowel sounds Extremity no pedal edema Skin no rashes or lesions noted Psych mental status grossly normal Assessment & Plan Assessment/Plan (1) Atherosclerotic heart disease of [place] coronary artery without angina pectoris: PLAN: The patient has been found to have angiographically significant appearing CAD involving the left main coronary artery. At the present time he appears to be resting comfortably. He is being monitored. He is being placed on medical therapy which includes agents such as aspirin, anticoagulants, nitrates, beta-blockers, afterload reducing agents, and lipid- lowering agents. His case has been discussed and reviewed with Dr. Johnston at [facility] CT surgery. He has agreed to accept the patient in transfer for CABG. (2) Cardiomyopathy: PLAN: The patient does appear to have an underlying cardiomyopathy. This may be related to his underlying CAD. He will continue medical management. Hopefully after the patient receives revascularization therapy his overall LV is wall motion and systolic function will improve. If it does not then he will have to be considered for future primary prevention ICD therapy. (3) Bicuspid aortic valve: PLAN: The patient appears to have a bicuspid aortic valve on echocardiogram. It appears to be functioning appropriately at this time. It will need to be followed over time. (4) Hyperlipidemia: PLAN: The patient will continue risk factor evaluation and care. Addt'l Comments The patient is also under going additional preoperative cardiovascular evaluation with a carotid artery duplex study. This note was generated using a voice recognition system and there may be incorrect words, spelling or punctuation that were not noted when reviewing the office note prior to saving.
[2021-09-20] MEDS: Metoprolol Tartrate 25 MG Tablet 12.5 MG PO ×2 (08:58→21:14)
[2021-09-20] MEDS: Aspirin 81 MG TAB.CHEW PO (08:59)
[2021-09-20] MEDS: Lisinopril 5 MG Tablet PO ×2 (08:59→21:14)
[2021-09-20] MEDS: Isosorbide Mononitrate 30 MG Tablet PO (08:59)
[2021-09-20 09:16] LABS: Partial Thromboplast Time 88.4 Seconds (24.1-36.2)
[2021-09-20] MEDS: HEPARIN/D5w 25,000 UNITS 25,000 UNITS/250 ML IV.SOLN. 13 UNITS IV (13:00)
[2021-09-20 15:56] LABS: Partial Thromboplast Time 68.7 Seconds (24.1-36.2)
[2021-09-20] MEDS: Atorvastatin Calcium 80 MG Tablet PO (21:15)
[2021-09-20 21:54] LABS: Partial Thromboplast Time 60.5 Seconds (24.1-36.2)
[2021-09-21] VITALS (15 sets, daily range): BP systolic 103–120; BP diastolic 56–77; PULSE 34–70; RESP 16–18; TEMP 36.2–36.9; O2SAT 95–97
[2021-09-21] MEDS: Levothyroxine 125 MCG Tablet PO (06:28)
[2021-09-21] MEDS: HEPARIN/D5w 25,000 UNITS 25,000 UNITS/250 ML IV.SOLN. 13 UNITS IV (06:31)
[2021-09-21 07:11] LABS: Partial Thromboplast Time 80.7 Seconds (24.1-36.2)
[2021-09-21] MEDS: Magnesium Hydroxide 30 ML UDC PO (07:53)
[2021-09-21] MEDS: Aspirin 81 MG TAB.CHEW PO (07:53)
--- NOTE | 2021-09-21 09:28 | PN.CARD_ITS ---
Subjective Subjective The patient is awake and alert. He denies ongoing chest discomfort or difficulty breathing. He has been up and ambulating in his room but not in the hallway. Objective Data Vital Signs: Vital Signs Temp Pulse Resp BP Pulse Ox 98.4 F 34 L 16 120/64 97 09/21/21 03:21 09/21/21 06:44 09/21/21 03:21 09/21/21 03:21 09/21/21 07:05 Oxygen Delivery Method Room Air Weight: 247 lb 9 oz Body Mass Index (BMI) 33.5 Intake & Output: Intake and Output for Last 24 Hours 09/19/21 09/20/21 09/21/21 23:59 23:59 23:59 Intake Total 200 / 200 736.30 / 976.30 602.24 / 602.24 Balance 200 / 200 736.30 / 976.30 602.24 / 602.24 Lab / Micro Data Result Diagrams: 09/20/21 02:35 09/20/21 02:35 Labs: Laboratory Results - last 24 hr 09/20/21 15:15: APTT 68.7 H 09/20/21 21:20: APTT 60.5 H 09/21/21 05:55: APTT 80.7 H Cardiology Labs/Tests 09/20/21 15:15: APTT 68.7 H 09/20/21 21:20: APTT 60.5 H 09/21/21 05:55: APTT 80.7 H Rhythm: sinus rhythm Radiography Diagnostic Testing: Radiology Impression Carotid Duplex 09/19/21 19:58 Interpretation Summary Smooth plaque in the proximal right internal carotid artery with less than 50% stenosis Less than 50% stenosis right external carotid artery Smooth plaque at the proximal left internal carotid artery with less than 50% stenosis Less than 50% stenosis left external carotid artery Patent antegrade vertebral arteries bilaterally Ordering Physician: Edilberto Wolff Referring Physician: Clarita Iyer Performed By: Kelly Yanez RVT Physical Exam Narrative This is a 66-year-old white male who appears to be resting comfortably at this time and in no acute distress. Const alert, oriented x3, no apparent distress and healthy appearing Orientation / Consciousness: awake HEENT normocephalic, head/scalp atraumatic and hearing grossly normal bilaterally Eyes PERRL, EOMs intact bilaterally and conjunctivae normal Neck full ROM, supple and no JVD Resp clear to auscultation bilaterally Cardio regular rate, regular rhythm, S1 normal heart sound and S2 normal heart sound GI normal to inspection, nondistended, normoactive bowel sounds Extremity no pedal edema Skin no rashes or lesions noted Psych mental status grossly normal Assessment & Plan Assessment/Plan (1) Atherosclerotic heart disease of [place] coronary artery without angina pectoris: PLAN: The patient has been found to have angiographically significant a ppearing CAD involving the left main coronary artery. At the present time he appears to be resting comfortably. He is being monitored. He is being placed on medical therapy which includes agents such as aspirin, anticoagulants, nitrates, beta-blockers, afterload reducing agents, and lipid-lowering agents. His case has been discussed and reviewed with Dr. Johnston at [facility] CT surgery. He has agreed to accept the patient in transfer for CABG. (2) Cardiomyopathy: PLAN: The patient does appear to have an underlying cardiomyopathy. This may be related to his underlying CAD. He will continue medical management. Hopefully after the patient receives revascularization therapy his overall LV is wall motion and systolic function will improve. If it does not then he will have to be considered for future primary prevention ICD therapy. (3) Bicuspid aortic valve: PLAN: The patient appears to have a bicuspid aortic valve on echocardiogram. It appears to be functioning appropriately at this time. It will need to be followed over time. (4) Hyperlipidemia: PLAN: The patient will continue risk factor evaluation and care. Addt'l Comments The patient will continue to be monitored. He will continue medical therapy. He is waiting transfer to [facility] for CABG. This note was generated using a voice recognition system and there may be incorrect words, spelling or punctuation that were not noted when reviewing the office note prior to saving.
[2021-09-21] MEDS: Metoprolol Tartrate 25 MG Tablet 12.5 MG PO ×2 (09:47→20:58)
[2021-09-21] MEDS: Isosorbide Mononitrate 30 MG Tablet PO (09:47)
[2021-09-21] MEDS: Lisinopril 5 MG Tablet PO ×2 (09:47→20:58)
--- NOTE | 2021-09-21 10:50 | CASEMGMT ---
YOMI HADDAD assessment: Face to Face with patient for initial transition planning/care coordination assessment. YOMI HADDAD introduced self and role at [facility], pt voices understanding and consents to assessment. Pt is sitting up in chair in no distress on room air. Pt is A/Ox4 and answers all questions appropriately. Care providers, pharmacy, and demographics verified. Presentation: Pt was OP cath and needs transferred to tertiary hospital for CABG Admitting dx: Abn EKG, angina PCP: [facility] Specialists: Pt states no current specialists. Preferred Pharmacy: [facility] Insurance: MMO Prescription Benefit: MMO Living Will/HPOA: Pt states has LW/HPOA and is aware that they are not on file. LNOK: Areli Heaton, Living Arrangements: Pt lives with in ranch style home and states no concerns at home. Pt is independent with ADL's. Transportation: Pt drives self and states no transportation concerns. DME/HHC: Pt states no current DME or need for any further DME. Pt states no hx of HHC or SNF. Pt states no concerns with going home at time of discharge. Pt is retired. Pt states does not smoke cigarettes but does drink about a 6pack/week. Pt voices no further concerns/needs. CM to follow for any further discharge planning/needs. Advised pt to ask for CM if any further questions/concerns/needs arise, voices understanding. Pt Goal: Home Plan: Home after further intervention at tertiary facility. [place] YOMI HADDAD
[2021-09-21 13:57] LABS: Partial Thromboplast Time 69.5 Seconds (24.1-36.2)
[2021-09-21 20:28] LABS: Partial Thromboplast Time 67.7 Seconds (24.1-36.2)
[2021-09-21] MEDS: Atorvastatin Calcium 80 MG Tablet PO (20:57)
--- NOTE | 2021-09-21 21:14 | NURSING ---
[facility] transport here at this time. Report given. Tele removed. IV transferred to ambulance pump. PT had HS medications and last vs entered. Belongings sent with pt.
--- NOTE | 2021-09-21 21:24 | NURSING ---
[facility] called with update regarding pt last meds given and VS.
--- NOTE | 2021-09-24 09:20 | PCM.DC.SUM ---
Providers Date of Admission: 09/19/21 Primary Care Physician: JUANA Crain Reason For Visit: ABN EKG Diagnosis Discharge Diagnosis (1) Atherosclerotic heart disease of [place] coronary artery without angina pectoris: Status: Acute Code(s): I25.10 - Atherosclerotic heart disease of [place] coronary artery without angina pectoris (2) Cardiomyopathy: Status: Acute Code(s): I42.9 - Cardiomyopathy, unspecified (3) Bicuspid aortic valve: Status: Acute Code(s): Q23.1 - Congenital insufficiency of aortic valve (4) Hyperlipidemia: Status: Acute Code(s): E78.5 - Hyperlipidemia, unspecified Medications at Discharge Home Medications omega-3 fatty acids 1,000 mg capsule 1,000 mg PO DAILY 07/02/18 aspirin 81 mg tablet,delayed release 81 mg PO DAILY 11/06/18 ascorbic acid (vitamin C) 1,000 mg tablet 1 g PO DAILY tab 09/13/21 cholecalciferol (vitamin D3) 50 mcg (2,000 unit) tablet 50 mcg PO DAILY 09/13/21 coenzyme Q10 100 mg tablet 100 mg PO DAILY 09/13/21 atorvastatin 20 mg PO DAILY 09/20/21 clopidogrel [Plavix] 75 mg PO DAILY 09/20/21 isosorbide mononitrate 60 mg PO DAILY 09/20/21 levothyroxine 125 mcg PO DAILY 09/20/21 metoprolol tartrate 25 mg PO BID 09/20/21 Hospital Course Operations None Procedures Cardiac catheterization Summary of Care Provided Hospital Course: The patient was brought to [facility] on 09-19-2021 based upon concerns of worsening angina pectoris for further evaluation with diagnostic cardiac catheterization. The diagnostic cardiac catheterization was completed and the patient was found to have angiographically significant appearing left main coronary artery disease. It was recommended that the patient remain in the hospital on cardiac rhythm monitoring and cardiovascular medical therapy including IV heparin pending transfer to a tertiary care center for CT surgery for coronary artery bypass grafting surgery. During this time the patient's antiplatelet therapy with clopidogrel/Plavix was placed on hold pending his need for upcoming CABG. In the interim the patient did undergo further evaluation with a transthoracic echocardiogram. The left ventricular systolic function was considered decreased with a reported LVEF of 30%. It was also noted the patient had what appeared to be a bicuspid aortic valve. The patient remained in the hospital without obvious adverse event. He was subsequently transferred to Dr. Mendoza Johnston of CT Surgery at [facility] for further evaluation and care on 09-21-2021. Physical Exam Const alert, oriented x3, no apparent distress and healthy appearing Orientation / Consciousness: awake HEENT normocephalic, head/scalp atraumatic and hearing grossly normal bilaterally Eyes PERRL, EOMs intact bilaterally and conjunctivae normal Neck full ROM, supple and no JVD Resp clear to auscultation bilaterally Cardio regular rate, regular rhythm, S1 normal heart sound and S2 normal heart sound Peripheral Pulses: radial pulses present right (No obvious bruits: No obvious hematoma) 2+ GI normal to inspection, nondistended, normoactive bowel sounds Extremity no pedal edema Skin no rashes or lesions noted Neuro oriented x3, moves all extremities, no focal motor deficits and no sensory deficits noted Psych mental status grossly normal Weight / BMI Weight Weight: 247 lb 9 oz Body Mass Index (BMI) 33.5 ABG / Lab / Microbiology Data Result Diagrams: 09/20/21 02:35 09/20/21 02:35 Meaningful Use Info Meaningful Use Diagnoses (Choose all that apply): None applicable Discharge Plan Admission Admit Date/Time: 09/19/21 15:22 Attending Provider: Edilberto Wolff Primary Care Provider: Clarita Iyer NP Discharge Orders/Prescriptions Prescriptions: No Action ascorbic acid (vitamin C) 1,000 mg tablet 1 g PO DAILY RF: 0 cholecalciferol (vitamin D3) 50 mcg (2,000 unit) tablet 50 mcg PO DAILY RF: 0 coenzyme Q10 100 mg tablet 100 mg PO DAILY RF: 0 omega-3 fatty acids [Fish Oil Concentrate] 1,000 mg capsule 1,000 mg PO DAILY RF: 0 aspirin 81 mg tablet,delayed release (DR/EC) 81 mg PO DAILY RF: 0 atorvastatin 20 mg tablet 20 mg PO DAILY RF: 0 isosorbide mononitrate 30 mg tablet extended release 24 hr 60 mg PO DAILY RF: 0 clopidogrel [Plavix] 75 mg tablet 75 mg PO DAILY RF: 0 levothyroxine 125 mcg tablet 125 mcg PO DAILY RF: 0 metoprolol tartrate 25 mg tablet 25 mg PO BID RF: 0 Referrals / Follow Up: Clarita Iyer NP, NATAN-C [Primary Care Provider] - Disposition Discharge Orders: Discharge Patient (Routine); Ordered 09/19/21 Ordered By: Dr. Edilberto Wolff
== END 2021-09-21 21:20 | disposition home or self-care (01) | DRG 287 ==
LOC: CLSP 09-20 08:04 → PCU 09-20 08:05
PROVIDERS: Admitting Provider Internal Medicine Cardiovascular Disease; PCP Nurse Practitioner; Visit Provider Internal Medicine Cardiovascular Disease
DX: I25.10 Atherosclerotic heart disease of native coronary artery without angina pectoris (principal); Q23.1 Congenital insufficiency of aortic valve; I49.1 Atrial premature depolarization; I42.9 Cardiomyopathy, unspecified; E78.5 Hyperlipidemia, unspecified; E66.3 Overweight; Z68.33 Body mass index [BMI] 33.0-33.9, adult; Z79.899 Other long term (current) drug therapy
CPT/HCPCS: 36415; 80048; 85025; 85610; 85730; 93306; 93454; 93880; 99152; 99153; J7040; Q9967; C1769; C1894

== ENCOUNTER 2022-02-18 08:12 | Outpatient (CLI) | payer OTHER, SELFPAY ==
--- NOTE | 2022-02-18 08:18 | CR.ITP_ITS ---
Diagnosis - General Information Admitting Diagnosis: S/P CABG Secondary Diagnosis: PAROXYSMAL ATRIAL FIB, PULMONRY EMBOLISM W/ACUTE CORPULMONALE, CONGENITAL INSUFFICIENCY OF AORTIC VALVE, UNSPECIFIED CARDIOMYOPATHY, ATHERSCLEROTIC HEART DISASE WITHOUT ANGINA Personal Learning Style:: Audio/Visual, Written Barriers to Learning: Hearing Impairment - OTITIS EDIA LEFT EAR, Vision Impairment Stage of change r/t lifestyle modifications:: Action Gave educational material for:: Treating Heart Disease, Emotions & Heart Disease, Stress Management & Relaxation, Sleep Disorders & Heart Disease, How Th e Heart Works, What it means to have Heart Disease, How Coronary Artery Disease is Diagnosed, Heart Procedures, What Heart Medications Do, Risk Factors & Modifications, Living an Active Life, Nutrition - Education/Goals Individual Counseling: Initial Assessment: Abnormal Cholesterol Levels, High Blood Pressure, Overweight/Obesity Cardiac Rehabilitation Goals: 1. Maintain the individual as the primary focus of care. 2. To improve the patient's quality of life. 3. Identification of cardiac risk factors and provide cardiac risk factor management. 4. Enhance the psychosocial status of the patient. 5. Reconditioning enough to allow the patient to resume customary activities. 6. Control symptoms of cardiac disease Personal Goals: Initial Assessment: Improve energy level, Improve knowledge of cardiac disease, Improve muscle strength and endurance, Control risk factors (learn risk factor modification) Scale for measuring improvement of personal goals: Enter appropriate number in Comments. 2 = Unchanged. 3 = Slightly Better. 4 = Moderate Improvement. 5 = Met my Goal - Diagnosis & Disease Process Outcomes/Goals: Pt IDs own risk factors & lifestyle modifications by Session 10, Verbalizes symptoms of angina & response by session 3., Pt independently manages Plan/Interventions: Assist Pt to ID & engage in lifestyle modification to reduce CVD risk, Instruct on individual risk factors, Review secondary diagnosis & identify educational needs. - Safety Referral to Physical Therapy: No Referral to [facility] Case Management: No Fall Risk Assessed:: Yes Assistive Devices:: None Exercise - Initial Assessment - Visit Date of Eval: 02/18/22 Session #:: 0 - PRE-CARDIAC REHAB EVALUATION Mets: Pre-: >7 METS for 30 minutes by discharge - Physician Prescribed Exercise Modalities: Treadmill, Rower, Airdyne Frequency: 3x/week for 12 weeks [36 sessions] Intensity: 60-80% of age predicted maximum heart rate reserve Current METSs:: 4.0 Target Heart Rate:: 101-132 Resting Blood Pressure: 143/78 EKG Type: SINUSRHYTHM WITH FREQUENT PACs Current Physical Activity or Exercising minutes: > 1 HOUR DAILY - Outcomes & Goals Goals:: Verbalizes understanding of THR, RPE & goal METS by session 6, Documents in home exercise log/reports 30 min aerobic 5 day/wk by DC, Demonstrates accurate pulse taking by DC - Intervention & Plan Exercise Program Goals: Instruct on personal THR & RPE, Instruct on MET level & personal MET goal, Show patient to take own pulse /validate performance until accurate, Instruct on home exercise - Physical Activity Home Exercise Physical Activity - Home Exercise: Safe Exercise, Warm-up, Self-monitoring, Cool-Down, Home Exercise > 30 min Daily, Sitting Time <3 hours/daily - Outcomes & Goals Outcomes/Goals: Demonstrates correct Warm-up/exercise Cool-Down (S3) if = 2.5 METs, Verbalizes symptoms of exercise intolerance by Session 3 (S3), Demonstrate safe equipment use (S3) & follows exercise prescrition (6) - Intervention & Plan Plan/Intervention: Instruct warm-up & cool-down if exercising at > 2 METs, Instruct on symptoms of exercise intolerance & actions to take, Instruct & monitor on saf, Assess intial functional capacity & safety risk Nutrition - Initial Assessment - Program Goals Nutrition Program Goals: LDL <100 optimal. 100 - 129 Near optimal. 130 - 159 Borderline High. 160 - 189 High. Total Cholesterol <200 desirable. 200 - 239 Borderline High. >/= 240 High. HDL < 40 Low >/=60 High. Triglycerides <150 desirable. <199 optimal. VlDL 5 - 40. HgbA1C <7%. BMI <25 Patient has diagnosis of Hyperlipidemia (ICD E78)?: Yes - Visit Date of Assessment:: 02/18/22 Session #:: 0 - PRE-CARDIAC REHAB EVALUATION - Cholesterol/Lipids Triglycerides (mg/dL): 155 - 09/12/2021 Total Cholesterol (mg/dL): 146 LDL Cholesterol (mg/dL): 81 HDL Cholesterol (mg/dL): 34 Determine presence & major risk factors that modify LDL goal: Hypertension or hy pertensive medication, Low HDL cholesterol <40 mg/dL*, Family history of premature CHD in Male < 55 years: female <65 yearsFa, Age men > 45 years; women >/= 55 years Outcomes/Goals: Pt IDs own risk factors & lifestyle modifications by Session 10, Verbalizes symptoms of angina & response by session 3., Pt independently manages Intervention/Plan: Instruct on personal lipid levels & lipid goals/NCEP guidelines, Instruct on cholesterol Referral to dietitian:: Yes - MEDICAL NUTRITION THERAPY - Diabetes (Other Core Measures) Diabetes Type: Not Applicable - Weight Mgt (Other Care) Not Applicable: No Height: 6 ft Weight:: 247 lb BMI: 33.5 Diagnosis Overweight/Obesity BMI> 30% ICD-10 E66: Yes Diagnosis High BMI/Morbid Obesity BMI> 35% ICD-10 Z68: No Outcomes/Goals: Pt sets, maintains & shows weight loss goal & trend during rehab Intervention/Plan: Instruct on ideal BMI & set weight loss goal w/patient, Assist pt to ID & incorporate diet changes for weight loss by S9, Refer to Structured Weight Loss program as appropriate, Encourage goal of using 250- 300dcal per session for weight loss - Healthy Eating Habits Will attend diet classes:: Yes Outcomes/Goals:: Consume diet rich in vegs,fruits,whole grain/high fiber,fish,lean meat, Limit sat/trans fats,cholesterol & added salts & sugars Intervention/Plan:: Assess current eating habits - Education Gave educational materials for:: Healthy eating Nutrition - 30-Day Assessment Nutrition - 60-Day Assessment Nutrition - 90-Day Assessment Nutrition - Final Assessment Medical - Initial Assessment - Visit Date of Eval: 02/18/22 Session #:: 0 - PRE-CARDIAC REHAB EVALUATION - Medication Compliance Preventative Medication(s):: Aspirin, Statin/lipid, Beta frankie, Eliquis H/O mental health issues: depression, anxiety, or addiction?: No Doesn?t believe in the benefits of treatment?: No Believes medications are unnecessary or harmful?: No Has a concern about medication side effects?: No Expresses concern over the cost of medications?: No Outcomes/Goals: Verbalizes medications,desired effect & common side effects @ DC, Pt self-reports following medication regimen, Keeps card in wallet w/medications listed by DC Interventions/plans: Instruct on medication effects & side effects, Review medication list w/patient every two weeks, Instruct importance of taking meds as ordered & assist problem solving - Tobacco Use Tobacco Use: Non-smoker - Hypertension Hypertension Diagnosis:: Hypertension ICD-10 I10 Resting Blood Pressure:: 143/78 [place] [employer] Hypertension Guidelines: [place] [employer] Hypertension Guidelines. Normal BP Less than 120/80. Elevated BP 120/80. Hypertension Stage 1: BP 130-139/80-89. Hypertesnion Stage 2: BP 140 or higher/90 or higher. Hypertension Crisis: BP higher than 180/120 Outcomes/Goals: Able to verbalize/achieve optimal blood pressure <130/80, Incorporates diet changes & exercise for blood pressure control by DC Interventions/plan: Instruct on optimal blood pressure, hypertension & medications, Instruct on effects of sodium, alcohol, stress, exercise &hypertension - Tobacco Cessation Referral Smoking Cessation Referral:: No Individual Education/Counseling:: No Education Schedule Given:: Yes Medical- 30-Day Assessment Medical- 60-Day Assessment Medical- 90-Day Assessment Medical - Final Assessment Psychosocial - Initial Assess - VIsit Date of Eval: 02/18/22 Session #:: 0 - PRE-CARDIAC REHAB EVALUATION Not Applicable: Yes History of previous Mental disease:: No - Psychosocial Test Tool Used:: Document [employer] QOL Cardiac, PHQ-9 Questionnaire phq-9 Severity: Severity. 1-4 Minimal Depression. 5-9 Mild Depression. 10-14 Moderate Depression. 15-19 Moderately Sever Depression. 20-27 Severe Depression. Rule: - Referral to Behavioral Health PS - Interventions: Yes Attend Stress Management Classes, No Referral to Behavioral Health if PHQ-9 score >9:, No Referral to [facility], No Referral to Physician if PHQ-9 if score is 5-9: - Outcomes/Goals: See list Psychosocial Outcomes/Goals:: ID's personal stressors & 2 strategies to manage stress by discharge - Intervention/Plan: See List Interventions/Plan:: Assess stressors,coping strategies & signs of derpression on admission, Instruct/assist pt to develop coping & personal stress Mgt strategies, Instruct patient to recognize signs & symptoms of depression, Instruct patient to recog Psychosocial - 30-Day Assess Psychosocial - 60-Day Assess Psychosocial - 90-Day Assess Psychosocial - Final Assessmen Patient Health Questionnaire Initial Assessment 1. Little interest or pleasure in doing things: Not at all 2. Feeling down, depressed, or hopeless: Not at all 3. Trouble falling or staying asleep, or sleeping too much: Not at all 4. Feeling tired or having little energy: Not at all 5. Poor appetite or overeating: Not at all 6. Feeling bad about yourself -- or that you are a failure or have let yourself or your family down: Not at all 7. Trouble concentrating on things, such as reading the newspaper or watching television: Not at all 8. Moving or speaking so slowly that other people could have noticed. Or the opposite - being so fidgety or restless that you have been moving around a lot more than usual: Not at all 9. Thoughts that you would be better off , or of hurting yourself in some way: Not at all How difficult have these problems made it for you to do your work, take care of things at home, or get along with other people?: Not difficult at all Total Score: 0 GEOVANI-Q SV Test - Statements CAD is a disease of the arteries in the heart: False Examples of risk factors for heart disease: True Angina is chest pain or discomfort: True The benefits of resistance training include: True Eating more meat and dairy products: I Don't Know Anti-platelet medications such as aspirin are important: True The only effective way to manage stress: False An exercise warm-up slowly increases heart rate: True Prepared, processed foods usually have high sodium: True Depression is common after a heart attack: True The statin medications lower cholesterol: True To control blood pressure, lower the amount of sodium: True If someone gets chest discomfort during walking: False Transfats are partially hydrogenated vegetable oils: True Sleep apnea that is not treated increases the risk: False To control cholesterol, one should become a vegetarian: False Someone knows if he/she is exercising at the right level: I Don't Know Diabetes cannot be prevented with exercise & health eating: False Stress is a large risk for heart attack: True A diet that can help lower blood pressure is rich in: True - Total Score Total Correct Responses: 18 Self-Efficacy Initial Assessment We would like to know how confident you are in doing certain activities. Please select your confidence level for:: Select your confidence level for the following using the scale 1-10 where 1 is not at all confident and 10 is totally confident. Your score is the average of all 6 responses. Fatigue: How confident are you that you can keep the fatigue caused by your disease from interfering with the things you want to do? Select Number: 8 Physical Discomfort or Pain: How confident are you that you can keep the physical discomfort or pain of your disease from interfering with the things you want to do? Select Number: 7 Emotional Distress: How confident are you that you can keep the emotional distress caused by your disease from interfering with the things you want to do? Select Number: 10 Other Symptoms or Health Problems: How confident are you that you can keep other symptoms or health problems from interfering with the things you want to do? Select Number: 10 Different Tasks and Activities: How confident are you that you can do the different tasks and activities needed to manage your health condition so as to reduce your need to see a doctor? Select Number: 8 Medication: How confident are you that you can do things other than just taking medication to reduce how much your illness affects your everyday life? Select Number: 10 Total Score:: 8 Nutrition Survey - Nutrition Survey Initial Have you lost >10 lbs over the past 2 months without trying?: No Are you following a special diet at home for diabetes, low fat, or low salt?: No Are you interested in meeting with a dietitian for help understanding your diet?: No Do you eat less than 3 meals a day?: Yes Do you eat fatty meats (colvin, sausage, ribs, etc), fried foods, desserts, large amounts of salad dressings, margarine, butter, or cheese most days?: No Do you have food allergies? [Enter types in comment field]: No Do you eat in restaurants more than 3 times a week?: No Do you season food with salt, seasoning salt, or garlic salt?: No Do you used canned, boxed, frozen meals, or soups, seasoning packets?: No Total Score:: 1
--- NOTE | 2022-02-18 08:18 | PCM.CR.HP2 ---
CR - History & Physical - General Arrival date:: 02/18/22 Arrival time:: 08:21 Date of Referral:: 01/16/21 Date of CR Evaluation:: 02/18/22 Referring Physician: DR. QUYEN KENNEDY Primary Diagnosis: S/P CABG - History of Present Cardiac Event Onset Date: Enter Onset Date of cardiac illnesses in Comment field below Coronary Artery Bypass Graft:: Yes - 11/27/2021 Type of Symptoms:: SHORTNESSOF BREATH AND CHEST DISCOMFORT. Interventions with present event:: HEART CATH MULTIPLE VESSEL DISEASE Were there any complications?: TRANSFER TO CVICU V-FIB ARREST -ACLS INITIATED RETURNED TO O.R. NOTHING FOU - Sleep Disorder Evaluation Hx of Sleep Apnea: No Do you snore loudly (louder than talking or can be heard through closed doors)?: No Do you often feel tired/ fatigued/ sleepy during daytime?: Yes - TAKES NAPS BUT ALSO RETIRED! Has anyone observed you stop breathing during sleep?: No History of Hypertension (for STOP score): Yes STOP Results: Positive - Medications Home Medications: Ambulatory Orders Medication Instructions Recorded omega-3 fatty acids 1,000 mg 1,000 mg PO DAILY 07/02/18 capsule aspirin 81 mg tablet,delayed 81 mg PO DAILY 11/06/18 release ascorbic acid (vitamin C) 1,000 mg 1 g PO DAILY tab 09/13/21 tablet cholecalciferol (vitamin D3) 50 50 mcg PO DAILY 09/13/21 mcg (2,000 unit) tablet coenzyme Q10 100 mg tablet 100 mg PO DAILY 09/13/21 levothyroxine 125 mcg tablet 125 mcg PO DAILY #90 tab 10/15/21 zinc gluconate 50 mg tablet 50 mg PO DAILY 01/03/22 apixaban 5 mg tablet 5 mg PO BID #60 tab 02/13/22 atorvastatin 40 mg tablet 40 mg PO QHS #90 tab 02/13/22 metoprolol succinate 50 mg 50 mg PO DAILY #90 tab 02/13/22 tablet,extended release 24 hr - Allergies Allergies/Adverse Reactions: Allergies latex Allergy (Verified 12/25/21 11:01) Hives lisinopril Adverse Reaction (Unknown, Verified 01/03/22 09:32) Cough Advanced Directives - Advanced Directives Power of Goodwill Representative: Yes Living Will: Yes Advance Directives Information Provided: No Advance Directives on File: No - UNSURE, BUT BELIEVES THEY ARE NOT ON FILE DNR Order?:: No Past Medical History - Covid-19 Screening Fever: No Unexplained muscle aches: No Current respiratory symptoms: No Upper respiratory infections symptoms: No Gastro-intestinal symptoms: No Chz-Epil-Iobhzg symptoms: No Has tested positive for COVID-19 in last 30 days: No Date of testin02/18/22 - HAS TWO STEP VACCINE BUT NO BOOSTER Had contact w/person w/symptoms or Covid-19 (+) last 14 days: No Has High Risk Exposures ID'd by Health dept/Inf Control team: No 65 years or older:: No Lives in Assisted Living facility:: No Has a chronic lung disease or moderate to severe asthma:: No Has a serious heart condition:: Yes Immunocompromised:: Yes Severely obese (Body Mass Index of 40 or higher):: No Diabetic:: No Has chronic kidney disease undergoing dialysis:: No Has liver disease:: No - Past Medical Illness Medical History: Past Medical History (Last Updated 01/10/22 @ 11:16 by Belinda Smith PA, PA) Abnormal electrocardiogram R94.31 Angina pectoris I20.9 Atherosclerotic heart disease of [place] coronary artery without angina pectoris I25.10 Bicuspid aortic valve Q23.1 Cardiomyopathy I42.9 Chronic ischemic heart disease I25.9 History of left heart catheterization (LHC) Onset Date: ~09/19/21 Z98.890 LEFT MAIN: mid: eccentric: 25 % Stenosis, distal: hazy: 85 % Stenosis; LEFT ANTERIOR DESCENDING ARTERY: Mild luminal irregularities; CIRCUMFLEX ARTERY: Mild luminal irregularities; RIGHT CORONARY ARTERY: Mild luminal irregularities; RECOMMENDATION: Surgery consult for coronary revascularization per cardiac cath 09/19/21 Hyperlipidemia E78.5 Hyperthyroidism E05.90 Hypothyroid E03.9 Hypothyroidism E03.9 Nicotine use disorder F17.200 Non-sustained ventricular tachycardia I47.2 Paroxysmal atrial fibrillation I48.0 Ventricular fibrillation I49.01 post CABG - Past Surgical History Surgical History: Past Surgical History (Last Reviewed 01/10/22 @ 10:55 by Belinda CONNELLY, PA) History of coronary artery bypass surgery Onset Date: ~11/27/21 Z95.1 CABG x2 - CONTRERAS-LAD, SVG-OM @ [facility] 11/27/21 History of heart surgery Onset Date: ~11/27/21 Z98.890 Reoperate open chest sternotomy due to VF/VT arrest post CABG 11/27/21 - Family History Summary Family History: Family History (Last Reviewed 01/10/22 @ 10:55 by Belinda Smith PA, PA) Father Myocardial infarction CAD (coronary artery disease) Other Alzheimer's dementia NEUROPATHY NON DM Social History - Smoking History Smoking Status: Former smoker - QUIT AT THE AGE OF 41 YEARS; LIGHT SMOKER - Occupation Occupation (List type of work in comments):: Retired - Hobbies, Recreation, Social Activities Hobbies: Sports - HUNTING, ARROWHEAD SEARCHING, Other - LANDSCAPING, GARDENING, 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 Recreational Activities: I am able to engage in most, but not all activities - SOME STILL NOT ALLOWED TO DO Social Environment - Status Marital Status: - Current Living Arrangements Living Environment:: Spouse - Children How many children do you have?: 2 Do any of your children live nearby?: Yes - Safety Do you feel safe in your surroundings?: Yes - Assistance Do you need any assistance at home?: NO Review of Systems - Review of Systems Hints: Right click = Denies ([place]ash). Left click = Reports ([place]) Review of Present Symptoms: Reports: Operative Discomfort - CHEST PAIN FROM INCISION AND COMPRESSIONS, Wound Healing, Heart Arrhythmia/Irregularities - H/O PAROXYSMAL ATRIAL FIB, VENTICULAR FIBRILLATION, Appetite - Normal, Appetite - Special Diet - EAT LESS MEAT, LITTLE PORK, NO CANNED PROCESSED, LOW SODIUM NOT ADDED SALT, MORE SALADS, ACTUALLY EATING A BREAKFAST IN THE MORNING OF OATMEAL OR CEREAL SKIPS LUNCH AND HAS A FIRE MARSHAL DINNER (SUPPER)., Sleep - Normal. Denies: Shortness of Breath at Rest, Shortness of Breath with Exertion - IF WENT RUNNING OR JOGGING BUT IN GENERAL NO PROBLEMS NOTED., Dizziness/Lightheadedness, Fatigue - BUT SINCE RETIRED WILL TAKE A NAP OCCASIONALLY DURING THE DAY., Sexual Changes - Pain Pain Location: chest Pain Level: 210 Risk Factor Assessment - Vital Signs Temperature: 97.8 F Respiratory Rate: 81 Pulse Ox: 96 Blood Pressure: 143/78 - Pulse Pulse Rate: 72 Pulse Rhythm: Regular - sINUS RHYTHM W/FREQUENT pacS - Hypertension How long have you been treated?: 09/10/2021 Blood Pressure Sitting - Left Arm: 143/78 - Blood Cholesterol/Lipids Total Cholesterol (mg/dL) Goal = less than 200 mg/dL: 146 - 09/12/2021 HDL Cholesterol (mg/dL) Goal = less than 40 mg/dL: 34 LDL Cholesterol (mg/dL) Goal = less than 70 mg/dL: 81 Triglycerides (mg/dL) Goal = less than 150 mg/dL: 155 - Obesity Height: 5 ft 11 in Weight:: 247 lb Weight in Pounds: 247.0 lbs Weight Source: Stated by Patient Body Mass Index (BMI): 34.4 - Physical Inactivity Physical Inactivity: Reg Exercise 30 min/day Exercise Limitations: CHEST DISCOMFORT AFTER DUE TO CPR, STERNUM SPLIT TWICE NOW. - Risk Stratification Risk Guidelines: Lowest Risk: Risk Factor for Smoking, Risk Factor for Dyslipidemia, Risk Factor for Diabetes, Risk Factor for Sedentary Lifestyle, Risk Factor for Depression, Moderate Risk: Risk Factor for Hypertension, Highest Risk: Risk Factor for Obesity - Family History Family History: Family History (Last Reviewed 01/10/22 @ 10:55 by Belinda Smith PA, PA) Father Myocardial infarction CAD (coronary artery disease) Other Alzheimer's dementia NEUROPATHY NON DM Motivation - Motivation to Participate On a scale of 1 to 10, how prepared are you to commit to attending program?: 1 What do you see as barriers to successfully being able to complete the program?: NONE What do you see as the benefits of succesfully completing the program? 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 Do you have a spouse or signficant other, family or friends who will help support you to complete the program?: YES
[2022-02-18 08:46] VITALS: BP 143/78; BMI 33.5
[2022-02-18 09:29] VITALS: BP 143/78; PULSE 72; RESP 81; TEMP 36.6; O2SAT 96; BMI 34.4
== END 2022-02-18 23:59 | disposition home or self-care (01) ==
LOC: CR 08:13
PROVIDERS: PCP Nurse Practitioner; Referring Provider Internal Medicine Cardiovascular Disease; Visit Provider Internal Medicine Cardiovascular Disease
DX: I25.10 Atherosclerotic heart disease of native coronary artery without angina pectoris (principal); I42.9 Cardiomyopathy, unspecified; I49.01 Ventricular fibrillation; I48.0 Paroxysmal atrial fibrillation; I47.2 Ventricular tachycardia; Q23.1 Congenital insufficiency of aortic valve; E78.5 Hyperlipidemia, unspecified; E03.9 Hypothyroidism, unspecified; Z87.891 Personal history of nicotine dependence; Z95.1 Presence of aortocoronary bypass graft; Z79.82 Long term (current) use of aspirin; Z79.01 Long term (current) use of anticoagulants; Z79.899 Other long term (current) drug therapy

== ENCOUNTER → 2022-02-19 11:36 | Outpatient (CLI) | payer OTHER, SELFPAY ==
[2022-02-18 08:46] VITALS: BMI 33.5
--- NOTE | 2022-02-19 13:26 | STRESSREP_ITS ---
Stress Test Report Date: 02-19-2022 Procedure: Exercise tolerance test Indications: CAD, CABG, cardiac dysrhythmia, Consent: Per the patient Procedure: The patient exercised on a Cesar protocol for 6 minutes and 30 seconds completing Stage II and 30 seconds of Stage III achieving a peak heart rate of 125 bpm (80% predicted maximal heart rate) with a peak blood pressure 140/64 mmHg and a peak MET capacity of approximately 8 MET's. The baseline ECG demonstrated sinus rhythm; PACs; nonspecific ST/T wave abnormality. The peak exercise ECG demonstrated somatic/motion artifact with beat to beat nonspecific ST segment abnormality/downsloping in leads III, aVF, and V4 through V6 with resolution towards baseline beginning less than 1 minute in recovery. There was a rare PVC during exercise and recovery. The functional capacity was considered average. The patient had no complaint of chest discomfort during exercise or recovery. The examination was discontinued secondary to fatigue. Impression: 1. Technically inadequate (percent predicted maximal heart rate less than 85%) exercise tolerance test 2. Peak exercise ECG with somatic/motion artifact would be to be nonspecific ST segment abnormality/downsloping in leads II, III, aVF, and V4 through V6 with resolution towards baseline beginning less than 1 minute in recovery 3. There was a rare PVC during exercise and recovery This note was generated with [employer] dictation software. It may contain incorrect words, spelling, and punctuation that were not noted in checking the note before signing.
== END ==
PROVIDERS: PCP Nurse Practitioner
DX: Z95.1 Presence of aortocoronary bypass graft (principal)
CPT/HCPCS: 93017

== ENCOUNTER → 2022-03-11 | Outpatient (CLI) | payer OTHER, SELFPAY ==
[2022-02-18 08:46] VITALS: BMI 33.5
== END | disposition home or self-care (01) ==
LOC: PSN 09:05
PROVIDERS: PCP Nurse Practitioner; Referring Provider Physician Assistant Medical; Visit Provider Physician Assistant Medical
DX: I48.0 Paroxysmal atrial fibrillation (principal)
CPT/HCPCS: 93225; 93226

== ENCOUNTER → 2022-06-24 | Outpatient (CLI) | payer MEDICARE, OTHER, SELFPAY ==
[2022-06-24 14:39] VITALS: BMI 33.5
[2022-06-24 21:51] LABS: Absolute Lymphocyte Count 1.48 X10^3/uL (0.83-4.51); Absolute Neutrophil Count 4.5 X10^3/uL (2.0-7.7); Basophil# 0.04 X10^3/uL; Basophil% 0.6 % (0-1); Eosinophil# 0.05 X10^3/uL; Eosinophils% 0.8 % (0-5); Hematocrit 44.2 % (40-54); Hemoglobin 14.8 g/dL (13.0-16.5); Lymphocyte # 1.48 X10^3/ul (0.83-4.51); Lymphocyte % 22.2 % (19-41); Mean Corp Hgb Conc 33.5 g/dL (32-36); Mean Corpuscular Hgb 29.7 pg (27.0-32.0); Mean Corpuscular Volume 88.8 fL (80-94); Monocyte# 0.58 X10^3/uL; Monocyte% 8.7 % (0-10); NRBC Flagged by Analyzer 0 % (0-5); Neutrophil % 67.5 % (47-70); Platelet Count 253 K/mm3 (150-450); RBC Distribution Width CV 13.2 % (11.6-14.6); RBC Distribution Width SD 42.7 fl (35.1-43.9); Red Blood Count 4.98 M/mm3 (4.6-6.2); White Blood Count 6.7 K/mm3 (4.4-11.0)
[2022-06-24 22:09] LABS: ALB/GLOB Ratio 1.2 RATIO (0.9-2.4); AST(SGOT) 21 U/L (15-37); Alanine Aminotransfer ALT/SGPT 34 U/L (16-61); Albumin, Serum 3.9 g/dL (3.2-5.0); Alkaline Phosphatase 116 U/L (45-117); Anion Gap 6 (5-15); BUN 18 mg/dL (7-18); BUN/Creat Ratio 15.8 RATIO (10-20); Chloride 109 mmol/L (98-107); Cholesterol 142 mg/dL (200); Creatinine, Serum 1.14 mg/dL (0.70-1.30); EST Glomerular Filtration Rate 69 mL/min (>60); Est Glom Filt Rate - Afr Amer 83 mL/min (>60); Globulin 3.2 g/dL (2.2-4.2); Glucose 97 mg/dL (74-106); High Density Lipoprotein 40 mg/dL; PSA,Total - Annual Screen 0.42 ng/mL (0.00-4.00); Potassium 3.8 mmol/L (3.5-5.1); Protein, Total 7.1 g/dL (6.4-8.2); Sodium Level 142 mmol/L (136-145); Thyroid Stim Hormone (TSH) 4.79 uIU/mL (0.358-3.74); Triglycerides 162 mg/dL; Very Low Density Lipoprotein 32 mg/dL (5-40)
== END | disposition home or self-care (01) ==
PROVIDERS: PCP Nurse Practitioner; Visit Provider Nurse Practitioner
DX: R35.0 Frequency of micturition (principal); I50.22 Chronic systolic (congestive) heart failure; I48.0 Paroxysmal atrial fibrillation; E03.9 Hypothyroidism, unspecified; Z12.5 Encounter for screening for malignant neoplasm of prostate
CPT/HCPCS: 80053; 80061; 84153; 84443; 85025; G0103

== ENCOUNTER → 2022-07-05 | Outpatient (CLI) | payer MEDICARE, OTHER, SELFPAY ==
[2022-06-24 14:39] VITALS: BMI 33.5
--- NOTE | 2022-07-05 07:51 | ECHOD_ITS ---
Reason For Study: S/P CABG Procedure This was a 2D Doppler, Color Flow transthoracic echocardiogram. Exam performed in department. Left Ventricle Apical false tendon noted. Moderate global left ventricular systolic dysfunction. The estimated ejection fraction is 30 %. Diastolic function is indeterminate. Right Ventricle Normal right ventricle. Normal systolic function. Atria The left atrium is mildly enlarged. Normal right atrium. No doppler evidence for ASD. Mitral Valve There is no mitral annular calcification. Normal mitral valve. Mild (1+) mitral valve insufficiency. Tricuspid Valve Normal tricuspid valve. Trivial tricuspid valve insufficiency. Right ventricular systolic pressure estimated to be 18 mmHg. Aortic Valve Bicuspid aortic valve. Mild focal aortic valve calcification. Pulmonic Valve The pulmonic valve is not well visualized. Great Vessels Normal aortic root. Pericardium/Pleural No pericardial effusion. MMode/2D Measurements & Calculations LVIDd: 5.4 cm IVSd: 1.0 cm Ao root diam: 3.5 cm LVIDs: 4.7 cm LVPWd: 0.98 cm RVDd: 3.6 cm FS: 11.5 % LAV(MOD-bp): 90.6 ml LVAd ap4: 40.9 cm2 SV(MOD-sp4): 70.4 ml LAV(MOD-bp) Indexed: 38.9 ml/m2 LVLd ap4: 9.6 cm LAV(MOD-sp2): 81.9 ml EDV(MOD-sp4): 141.1 ml LAV(MOD-sp4): 80.3 ml EDV(sp4-el): 148.3 ml LVAs ap4: 25.8 cm2 LVLs ap4: 8.1 cm ESV(MOD-sp4): 70.7 ml ESV(sp4-el): 70.0 ml EF(MOD-sp4): 49.9 % EF(sp4-el): 52.8 % SV(sp4-el): 78.3 ml LA A4 area: 25.5 cm2 LA dimension(2D): 4.1 cm RA A4 area: 22.3 cm2 Time Measurements MV dec time: 0.27 sec Doppler Measurements & Calculations MV E max sacha: 47.2 cm/sec Lat Peak E' Sacha: 7.1 cm/sec Med Peak E' Sacha: 6.9 cm/sec MV A max sacha: 46.0 cm/sec E/E' lat: 6.6 E/E' med: 6.8 MV E/A: 1.0 MV V2 max: 77.5 cm/sec Ao V2 max: 138.5 cm/sec MV max P.4 mmHg MV dec slope: 179.7 cm/sec2 Ao max P.7 mmHg MV V2 mean: 32.3 cm/sec Ao V2 mean: 100.2 cm/sec MV mean P.53 mmHg Ao mean P.5 mmHg MV V2 VTI: 39.0 cm Ao V2 VTI: 38.7 cm LV V1 max: 85.6 cm/sec PA V2 max: 61.1 cm/sec TR max sacha: 192.5 cm/sec LV V1 max P.9 mmHg TR max P.8 mmHg LV V1 mean P.6 mmHg LV V1 mean: 60.2 cm/sec LV V1 VTI: 22.7 cm ECHO/Echo Complete Interpretation Summary The study is technically difficult. Moderate global left ventricular systolic dysfunction. The estimated ejection fraction is 30 %. Apical false tendon noted. The left atrium is mildly enlarged. Mild (1+) mitral valve insufficiency. Trivial tricuspid valve insufficiency. Bicuspid aortic valve. Mild focal aortic valve calcification. Right ventricular systolic pressure estimated to be 18 mmHg. Diastolic function is indeterminate. Ordering Physician: Edilberto Wolff Referring Physician: Edilberto Wolff Performed By: Saundra Fletcher RCS
== END | disposition home or self-care (01) ==
LOC: CVS 07:49
PROVIDERS: PCP Nurse Practitioner; Referring Provider Internal Medicine Cardiovascular Disease; Visit Provider Internal Medicine Cardiovascular Disease
DX: I48.0 Paroxysmal atrial fibrillation (principal); I42.9 Cardiomyopathy, unspecified; I49.01 Ventricular fibrillation; Z95.1 Presence of aortocoronary bypass graft; Q23.1 Congenital insufficiency of aortic valve; I25.10 Atherosclerotic heart disease of native coronary artery without angina pectoris; E78.5 Hyperlipidemia, unspecified
CPT/HCPCS: 93306

== ENCOUNTER → 2022-08-20 | Outpatient (CLI) | payer MEDICARE, OTHER, SELFPAY ==
[2022-06-24 14:39] VITALS: BMI 33.5
--- NOTE | 2022-08-20 07:52 | ECHOL_ITS ---
Version 2 Reason For Study: CHF Procedure This was a limited 2D transthoracic echocardiogram. The study was technically difficult. Exam performed in department. Left Ventricle Normal LV size. Mild global left ventricular systolic dysfunction. The estimated ejection fraction is 45 %. Unable to assess diastolic dysfunction. Right Ventricle Normal RV size. Normal systolic function. Atria The left atrium is mildly enlarged. Normal right atrium. Mitral Valve There is no mitral annular calcification. Normal mitral valve. Tricuspid Valve Normal tricuspid valve. Aortic Valve Bicuspid aortic valve. Pulmonic Valve The pulmonic valve is not well visualized. Great Vessels Borderline enlarged aortic root. Pericardium/Pleural No pericardial effusion. MMode/2D Measurements & Calculations LVIDd: 5.0 cm IVSd: 1.1 cm LAV(MOD-bp): 85.1 ml LVIDs: 4.2 cm LVPWd: 1.0 cm LAV(MOD-bp) Indexed: 37.3 ml/m2 RVDd: 3.8 cm FS: 16.6 % LAV(MOD-sp2): 83.7 ml LAV(MOD-sp4): 86.6 ml SV(MOD-sp4): 84.7 ml LVAd ap4: 47.3 cm2 LVAd ap2: 30.7 cm2 LVLd ap4: 9.7 cm LVLd ap2: 8.2 cm EDV(MOD-sp4): 184.9 ml EDV(MOD-sp2): 97.0 ml EDV(sp4-el): 195.0 ml EDV(sp2-el): 97.7 ml LVAs ap4: 31.6 cm2 LVAs ap2: 22.9 cm2 LVLs ap4: 8.3 cm LVLs ap2: 7.6 cm ESV(MOD-sp4): 100.2 ml ESV(MOD-sp2): 58.4 ml ESV(sp4-el): 101.8 ml ESV(sp2-el): 59.1 ml EF(MOD-sp4): 45.8 % EF(MOD-sp2): 39.8 % EF(sp4-el): 47.8 % SV(MOD-sp2): 38.6 ml SV(sp4-el): 93.2 ml LA A4 area: 25.1 cm2 LA dimension(2D): 3.9 cm RA A4 area: 17.8 cm2 ECHO/Echo, Limited Study Interpretation Summary The study was technically difficult. Mild global left ventricular systolic dysfunction. The estimated ejection fraction is 45 %. The left atrium is mildly enlarged. Bicuspid aortic valve. Borderline enlarged aortic root Unable to assess diastolic dysfunction. Ordering Physician: Edilberto Wolff Referring Physician: Clarita Iyer Performed By: Vicenta Silva, MARACS, RVT
== END | disposition home or self-care (01) ==
LOC: CVS 07:51
PROVIDERS: PCP Nurse Practitioner; Referring Provider Internal Medicine Cardiovascular Disease; Visit Provider Internal Medicine Cardiovascular Disease
DX: I25.10 Atherosclerotic heart disease of native coronary artery without angina pectoris (principal); I50.22 Chronic systolic (congestive) heart failure; Z95.1 Presence of aortocoronary bypass graft
CPT/HCPCS: 93308

== ENCOUNTER → 2022-10-18 | Outpatient (CLI) | payer MEDICARE, OTHER, SELFPAY ==
[2022-06-24 14:39] VITALS: BMI 33.5
[2022-10-18 23:05] LABS: Thyroid Stim Hormone (TSH) 3.72 uIU/mL (0.358-3.74)
== END | disposition home or self-care (01) ==
PROVIDERS: PCP Nurse Practitioner; Visit Provider Nurse Practitioner
DX: E05.90 Thyrotoxicosis, unspecified without thyrotoxic crisis or storm (principal)
CPT/HCPCS: 84443

== ENCOUNTER → 2023-10-20 | Outpatient (CLI) | payer MEDICARE, OTHER, SELFPAY ==
[2023-10-20 21:37] LABS: Absolute Lymphocyte Count 1.25 X10^3/uL (0.83-4.51); Absolute Neutrophil Count 5.1 X10^3/uL (2.0-7.7); Basophil# 0.06 X10^3/uL; Basophil% 0.8 % (0-1); Eosinophils% 1.4 % (0-5); Hematocrit 43.8 % (40-54); Hemoglobin 14.6 g/dL (13.0-16.5); Lymphocyte # 1.25 X10^3/ul (0.83-4.51); Lymphocyte % 17.5 % (19-41); Mean Corp Hgb Conc 33.3 g/dL (32-36); Mean Corpuscular Hgb 30.2 pg (27.0-32.0); Mean Corpuscular Volume 90.7 fL (80-94); Mean Platelet Vol. 10.9 fl (6.2-12.0); Monocyte# 0.55 X10^3/uL; Monocyte% 7.7 % (0-10); NRBC Flagged by Analyzer 0 % (0-5); Neutrophil # 5.14 X10^3/uL (2.7-7.7); Neutrophil % 72.2 % (47-70); Platelet Count 224 K/mm3 (150-450); RBC Distribution Width CV 12.7 % (11.6-14.6); RBC Distribution Width SD 41.7 fl (35.1-43.9); Red Blood Count 4.83 M/mm3 (4.6-6.2); White Blood Count 7.1 K/mm3 (4.4-11.0)
[2023-10-20 22:02] LABS: ALB/GLOB Ratio 1.1 RATIO (0.9-2.4); AST(SGOT) 17 U/L (15-37); Alanine Aminotransfer ALT/SGPT 28 U/L (16-61); Albumin, Serum 3.4 g/dL (3.2-5.0); Alkaline Phosphatase 106 U/L (45-117); Anion Gap 5 (5-15); BUN 15 mg/dL (7-18); BUN/Creat Ratio 13.9 RATIO (10-20); Calcium,Total 8.5 mg/dL (8.5-10.1); Chloride 109 mmol/L (98-107); Cholesterol 142 mg/dL (200); Creatinine, Serum 1.08 mg/dL (0.70-1.30); EST Glomerular Filtration Rate 73 mL/min (>60); Est Glom Filt Rate - Afr Amer 88 mL/min (>60); Glucose 140 mg/dL (74-106); High Density Lipoprotein 39 mg/dL; PSA,Total - Annual Screen 0.64 ng/mL (0.00-4.00); Potassium 3.9 mmol/L (3.5-5.1); Protein, Total 6.4 g/dL (6.4-8.2); Sodium Level 141 mmol/L (136-145); Thyroid Stim Hormone (TSH) 3.23 uIU/mL (0.358-3.74); Triglycerides 147 mg/dL; Very Low Density Lipoprotein 29 mg/dL (5-40)
== END | disposition home or self-care (01) ==
PROVIDERS: Visit Provider Nurse Practitioner
DX: R35.0 Frequency of micturition (principal); I42.9 Cardiomyopathy, unspecified; E78.5 Hyperlipidemia, unspecified; E03.9 Hypothyroidism, unspecified; I49.1 Atrial premature depolarization; I10 Essential (primary) hypertension; Z12.5 Encounter for screening for malignant neoplasm of prostate
CPT/HCPCS: 80053; 80061; 84153; 84443; 85025; G0103

== ENCOUNTER → 2023-10-20 | Outpatient (CLI) | payer MEDICARE, OTHER, SELFPAY ==
[2022-06-24 14:39] VITALS: BMI 33.5
== END | disposition home or self-care (01) ==
LOC: LABSPEC 22:37
PROVIDERS: PCP Nurse Practitioner; Visit Provider Nurse Practitioner
DX: E03.9 Hypothyroidism, unspecified (principal); I42.9 Cardiomyopathy, unspecified; E78.5 Hyperlipidemia, unspecified; I49.1 Atrial premature depolarization; I10 Essential (primary) hypertension; R35.0 Frequency of micturition

== ENCOUNTER → 2024-02-13 | Outpatient (CLI) | payer MEDICARE, OTHER, SELFPAY ==
[2022-06-24 14:39] VITALS: BMI 33.5
== END | disposition home or self-care (01) ==
LOC: PSN 08:17
PROVIDERS: Referring Provider Physician Assistant Medical; Visit Provider Physician Assistant Medical
DX: I48.0 Paroxysmal atrial fibrillation (principal)
CPT/HCPCS: 93225; 93226

== ENCOUNTER → 2024-03-15 | Outpatient (CLI) | payer MEDICARE, OTHER, SELFPAY ==
[2022-06-24 14:39] VITALS: BMI 33.5
--- NOTE | 2024-03-15 08:52 | ECHOD_ITS ---
Reason For Study: DCMP Procedure This was a 2D Doppler, Color Flow transthoracic echocardiogram. Exam performed in department. Left Ventricle Normal LV size. The estimated ejection fraction is 50 %. Stage 1 diastolic dysfunction. No regional wall motion abnormalities noted. Right Ventricle Normal RV size. Normal systolic function. Atria The left atrium is moderately enlarged. Normal right atrium. Mitral Valve Normal mitral valve. Tricuspid Valve Normal tricuspid valve. Aortic Valve Trisinus/trileaflet aortic valve. Pulmonic Valve Normal pulmonic valve. Great Vessels Normal aortic root. The pulmonary artery is normal size. Inferior vena cava collapse with respiration. Pericardium/Pleural No pericardial effusion. MMode/2D Measurements & Calculations LVIDd: 5.7 cm IVSd: 1.2 cm LVOT diam: 2.5 cm LVIDs: 3.7 cm LVPWd: 1.1 cm LVOT area: 4.9 cm2 FS: 35.3 % Ao root diam: 4.0 cm LAV(MOD-bp): 89.5 ml LVAd ap4: 37.1 cm2 LAV(MOD-bp) Indexed: 39.1 ml/m2 LVLd ap4: 8.7 cm LAV(MOD-sp2): 79.8 ml EDV(MOD-sp4): 127.9 ml LAV(MOD-sp4): 86.6 ml EDV(sp4-el): 134.9 ml LVAs ap4: 26.2 cm2 LVLs ap4: 7.7 cm ESV(MOD-sp4): 71.9 ml ESV(sp4-el): 75.2 ml EF(MOD-sp4): 43.8 % EF(sp4-el): 44.3 % SV(MOD-sp4): 56.0 ml SV(sp4-el): 59.7 ml LA A4 area: 26.1 cm2 LA dimension(2D): 4.1 cm RA A4 area: 19.3 cm2 Time Measurements MV dec time: 0.60 sec Doppler Measurements & Calculations MV E max sacha: 40.1 cm/sec Lat Peak E' Sacha: 11.5 cm/sec Med Peak E' Sacha: 4.5 cm/sec MV A max sacha: 43.3 cm/sec E/E' lat: 3.5 E/E' med: 8.9 MV E/A: 0.93 MV V2 max: 65.2 cm/sec Ao V2 max: 165.4 cm/sec MV max P.7 mmHg MV dec slope: 66.9 cm/sec2 Ao max P.9 mmHg MV V2 mean: 27.9 cm/sec Ao V2 mean: 109.8 cm/sec MV mean P.41 mmHg Ao mean P.6 mmHg MV V2 VTI: 22.6 cm Ao V2 VTI: 41.2 cm AV (velocity ratio): 0.65 MVA(VTI): 5.8 cm2 JOSY(I,D): 3.2 cm2 JOSY(V,D): 3.0 cm2 LV V1 max: 102.2 cm/sec SV(LVOT): 131.9 ml PA V2 max: 91.7 cm/sec LV V1 max P.2 mmHg PA V2 mean: 71.0 cm/sec LV V1 mean P.7 mmHg LV V1 mean: 77.8 cm/sec LV V1 VTI: 26.8 cm ECHO/Echo Complete Interpretation Summary Normal LV size. The estimated ejection fraction is 50 %. The left atrium is moderately enlarged. Stage 1 diastolic dysfunction. Ordering Physician: Belinda Smith Referring Physician: Belinda Smith Performed By: Saundra Fletcher RCS
== END | disposition home or self-care (01) ==
LOC: CVS 08:50
PROVIDERS: Referring Provider Physician Assistant Medical; Visit Provider Physician Assistant Medical
DX: R06.02 Shortness of breath (principal); I42.9 Cardiomyopathy, unspecified; Q23.1 Congenital insufficiency of aortic valve
CPT/HCPCS: 93306

== ENCOUNTER → 2024-09-08 | Outpatient (CLI) | payer MEDICARE, OTHER, SELFPAY ==
[2022-06-24 14:39] VITALS: BMI 33.5
[2024-09-09 02:05] LABS: ALB/GLOB Ratio 1.4 RATIO (0.9-2.4); AST(SGOT) 18 U/L (15-37); Alanine Aminotransfer ALT/SGPT 35 U/L (16-61); Albumin, Serum 3.7 g/dL (3.2-5.0); Alkaline Phosphatase 83 U/L (45-117); Anion Gap 5 (5-15); BUN 18 mg/dL (7-18); BUN/Creat Ratio 15.5 RATIO (10-20); Calcium,Total 8.8 mg/dL (8.5-10.1); Chloride 110 mmol/L (98-107); Cholesterol 135 mg/dL (200); Creatinine, Serum 1.16 mg/dL (0.70-1.30); EST Glomerular Filtration Rate 67 mL/min (>60); Est Glom Filt Rate - Afr Amer 81 mL/min (>60); Globulin 2.6 g/dL (2.2-4.2); Glucose 90 mg/dL (74-106); High Density Lipoprotein 44 mg/dL; Potassium 3.9 mmol/L (3.5-5.1); Protein, Total 6.3 g/dL (6.4-8.2); Sodium Level 142 mmol/L (136-145); Triglycerides 93 mg/dL; Very Low Density Lipoprotein 19 mg/dL (5-40)
[2024-09-09 10:16] LABS: Hemoglobin A1c 5.5 % (3.8-5.6)
[2024-09-10 16:10] LABS: Lyme Scn Total Ab w/Rflx Negative (Negative)
== END | disposition home or self-care (01) ==
PROVIDERS: Referring Provider Nurse Practitioner; Visit Provider Nurse Practitioner
DX: I10 Essential (primary) hypertension (principal); I48.0 Paroxysmal atrial fibrillation; E78.2 Mixed hyperlipidemia; E03.9 Hypothyroidism, unspecified; W57.XXXA Bitten or stung by nonvenomous insect and other nonvenomous arthropods, initial encounter; R73.9 Hyperglycemia, unspecified
CPT/HCPCS: 80053; 80061; 83036; 84443; 86618

== ENCOUNTER 2024-12-21 07:45 | Day surgery (SDC) | payer MEDICARE, OTHER, SELFPAY ==
[2022-06-24 14:39] VITALS: BMI 33.5
--- NOTE | 2024-12-17 11:07 | PAT.ANE_ITS ---
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 When Was Last Pacemaker Check QUESTION #4 FULL TEXT: You/Your Family Experience fever (hyperthermia) with Anesthesia Last Oral Intake Last Oral intake: Last Oral Intake NPO since Meds taken in AM with sips of water? Meds patient instructed to take am of surgery PONV PONV - perishable freight inspector: PONV - perishable freight inspector Female No 12/17/24 10:34 HX of Motion Sickness No 12/17/24 10:34 HX of N/V After Surgery No 12/17/24 10:34 Non-Smoker No 12/17/24 10:34 Duration of Surgery greater No 12/17/24 10:34 than 60 minutes Number of Risk Factors PONV Score Height & Weight Height & Weight: Anesthesia: Height & Weight Height 6 ft 10/26/24 08:54 Respiratory Assessment Respiratory Assessment - perishable freight inspector: Respiratory Tract Infection Hx - perishable freight inspector Hx Respiratory Tract Infection No 12/17/24 10:34 STOP Sleep Apnea STOP Sleep Apnea - perishable freight inspector: STOP Sleep Apnea - perishable freight inspector Hx Hypertension Yes: CONTROLLED WITH MEDS 12/17/24 10:34 Hx Sleep Apnea No 12/17/24 10:34 CPAP BIPAP Do you snore loudly (louder No 12/17/24 10:34 than talking or can be heard Do you often feel tired/ No 12/17/24 10:34 fatigued/ sleepy during daytime? Has anyone observed you stop No 12/17/24 10:34 breathing during sleep? STOP Results Negative 12/17/24 10:34 QUESTION #5 FULL TEXT : Do you snore loudly (louder than talking or can be heard through closed doors)? Tobacco Use History Tobacco Use History - perishable freight inspector: Tobacco Use History - perishable freight inspector Tobacco Use Smoking Status Current every day smoker 12/17/24 10:34 Hx Tobacco Use Yes 12/17/24 10:34 Years Smoking Packs Smoked per Day Smoking Cessation Date was within the last 15 years Hx Smoking Cessation Date 11/10/09 12/17/24 10:34 Hx Smoking Cessation Counseling Hematologic Medial History Hematologic Hx - perishable freight inspector: Hematologic Medical Hx - documentation consultant Hx of Blood Transfusion No 12/17/24 10:34 Hx of Transfusion in last 3 No 12/17/24 10:34 Months Date of Last Transfusion (if within last 3 months) Ever experience any problems No 12/17/24 10:34 with transfusion(s)? Specify any problems Hx of Preganancy in last 3 N/A 12/17/24 10:34 Months Nurse Filling Out Transfusion DSCHRIBER 12/17/24 10:34 & Questions: Date: 12/17/24 12/17/24 10:34 Time: 10:36 12/17/24 10:34 Patient unable to answer at this time (ie. confused, unrespo /Reproduction History /Reproductive History - perishable freight inspector: /Reproductive Hx- perishable freight inspector Hx Now No 12/17/24 10:34 Gestational Age (in weeks): EDC: Hx Hx Para Hx Section SAB No 12/17/24 10:34 [facility] Medical History (Updated 12/17/24 @ 10:43 by Li Gonzalez) Wears glasses Thyroid disease Pulmonary embolism High cholesterol History of Holter monitoring History of stress test History of echocardiogram Cardiology follow-up encounter History of irregular heartbeat History of colon polyps Acute myringitis, left ear URI (upper respiratory infection) Acute bronchitis, unspecified Ventricular fibrillation Nicotine use disorder Non-sustained ventricular tachycardia Chronic ischemic heart disease Paroxysmal atrial fibrillation Bicuspid aortic valve Cardiomyopathy Atherosclerotic heart disease of [place] coronary artery without angina pectoris History of left heart catheterization (LHC) (~09/19/21) Angina pectoris Abnormal electrocardiogram Hyperlipidemia Home Medications ?Medication ?Instructions ?Recorded ?Last Taken ?Type aspirin 81 mg tablet,delayed 81 mg PO DAILY heart heal th 11/06/18 09/19/21 History release ascorbic acid (vitamin C) 1,000 mg 1 g PO DAILY vitami n 09/13/21 Unknown History tablet cholecalciferol (vitamin D3) 50 50 mcg PO DAILY vitami n 09/13/21 Unknown History mcg (2,000 unit) tablet zinc gluconate 50 mg tablet 50 mg PO DAILY 01/03/22 Un known History fluticasone propionate 50 1 spray intranasal DAILY 10/02 Unknown History mcg/actuation nasal spray,suspension (Allergy Relief (fluticasone)) apixaban 5 mg tablet (Eliquis) 5 mg PO BID #180 tabs 0 11/26/24 Unknown Rx atorvastatin 40 mg tablet 40 mg PO QHS #90 tabs Unknown Rx metoprolol succinate 25 mg 25 mg PO DAILY #90 tabs Unknown Rx tablet,extended release 24 hr sacubitril 24 mg-valsartan 26 mg 1 tab PO BID #180 tab s 11/26/24 Unknown Rx tablet (Entresto) levothyroxine 137 mcg tablet 137 mcg PO QDAY #30 tabs 11/29/24 Unknown Rx dapagliflozin propanediol 10 mg 10 mg PO DAILY 5 Unknown History tablet (Farxiga) Allergy/AdvReac Type Severity Reaction Status Date / Time latex Allergy Hives Verified 12/17/24 10:30 losartan AdvReac Intermediate Other Verified 12/17/24 10:30 lisinopril AdvReac Unknown Cough Verified 12/17/24 10:30 Family History Father Myocardial infarction CAD (coronary artery disease) Other Alzheimer's dementia NEUROPATHY NON DM Surgical History History of colonoscopy History of heart surgery (~11/27/21) History of coronary artery bypass surgery (~11/27/21) Social History Smoking Status: Current every day smoker tobacco type: cigarettes and smokeless tobacco Smokeless tobacco user: chewing tobacco alcohol intake: never substance use type: does not use caffeine: Yes Type: coffee Number of servings: 1 Audit: Pertinent Findings Pertinent Findings Stress test pertinent findings: 02/19/2022 less than 85% heart rate nonspecific ST abnormality downsloping nondiagnostic rare PVC during exercise and recovery Echo (EF%) pertinent findings: 03/15/2024 normal size EF 50% Heart catheterization pertinent findings: 09/19/2021 [place] multivessel coronary artery disease left main 85% stenosis recommended risk factor modification medical therapy and consult for coronary revascularization Consult pertinent findings: Cardiology 10/26/2024 status post CABG x 2 CONTRERAS to LAD saphenous vein graft to obtuse marginal continue current medical care cardiomyopathy EF 50% continue current dose of metoprolol and monitor paroxysmal A-fib he has not had any recurrence continue metoprolol Pulmonary function results/spirometer pertinent findings: 09/13/2021 chest x-ray normal x-ray examination of chest Recommendation Anesthesia Recommendation Anesthesia recommendation: OPTIMIZED for anesthesia
[2024-12-21] VITALS (13 sets, daily range): BP systolic 62–109; BP diastolic 48–66; PULSE 54–68; RESP 14–16; TEMP 36.1–36.5; O2SAT 92–98; BMI 33.2
--- NOTE | 2024-12-21 08:27 | PRE.ANES_ITS ---
ASA Classification* ASA Classification ASA Classification: 3 Assessment & Plan Anesthesia* Anesthesia Assessment Anesthesia Assessment: Discussed sedation and/or anesthesia options, risks, benefits, and alternatives with patient/parents/legal guardian/POA. Questions invited. The patient/parents/legal guardian/POA seems to understand and agrees to proceed with anesthesia plan. Reviewed the physical assessment, medical history, allergy history and patient home medications list prior to surgery/procedure/anesthetic and documented any changes. Performed airway and anesthesia risk assessments. Anesthesia Type Anesthesia Type: MAC History Source History Obtained from:: Patient and Chart Anesthesia Focused Assessment* Temperature: 97.6 F Pulse Rate: 61 Blood Pressure: 109/61 Respiratory Rate: 16 Pulse Ox: 97 Oxygen Delivery Method: Room Air Airway Assessment Mouth opens: >3 cm Mallampati Score: I Teeth Condition: Intact Neck Range of motion (ROM): Full ROM Focused Labs Anesthesia Preop lab: CBC WBC 7.1 K/mm3 (4.4-11.0) 10/20/23 23:59 10/20/23 RBC 4.83 M/mm3 (4.6-6.2) 10/20/23 23:59 10/20/23 Hgb 14.6 g/dL (13.0-16.5) 10/20/23 23:59 10/20/23 Hct 43.8 % (40-54) 10/20/23 23:59 10/20/23 Plt Count 224 K/mm3 (150-450) 10/20/23 23:59 10/20/23 CHEMISTRY Potassium 3.9 mmol/L (3.5-5.1) 09/08/24 23:59 09/08/24 Sodium 142 mmol/L (136-145) 09/08/24 23:59 09/08/24 BUN 18 mg/dL (7-18) 09/08/24 23:59 09/08/24 Creatinine 1.16 mg/dL (0.70-1.30) 09/08/24 23:59 09/08/24 Glucose 90 mg/dL (74-106) 09/08/24 23:59 09/08/24 TSH 2.660 uIU/mL (0.358-3.740) 09/08/24 23:59 08/12 COAG PT 12.7 SECONDS (11.7-14.9) 09/19/21 18:54 Pre-Assessment Diagnosis/Proposed Procedure Planned Operative Procedure(s): CSCOPE Anesthesia History Anesthesia History - asp net developer: Anesthesia History - asp net developer Hx Hospitalization No 12/17/24 10:34 Any Problems With Anesthesia No 12/17/24 10:34 Cholinesterase deficiency No 12/17/24 10:34 You/Your Family Experience No 12/17/24 10:34 fever (hyperthermia) with Relationship Recent Exposure to Contagious No 12/21/24 08:15 Disease Does patient have nerve No 12/17/24 10:34 stimulator Patient instructed to have device shut off --Does patient have Pacemaker No 12/21/24 08:15 or ICD? When Was Last Pacemaker Check QUESTION #4 FULL TEXT: You/Your Family Experience fever (hyperthermia) with Anesthesia Last Oral Intake Last Oral intake: Last Oral Intake NPO since 07:00 12/21/24 08:15 Meds taken in AM with sips of water? Meds patient instructed to take am of surgery Any additional information?: Yes NPO since: 07:00 (Patient took meds with sips of water at 7 AM.) Meds taken in AM with sips of water?: Yes PONV PONV - asp net developer: PONV - asp net developer Female No 12/17/24 10:34 HX of Motion Sickness No 12/17/24 10:34 HX of N/V After Surgery No 12/17/24 10:34 Non-Smoker No 12/17/24 10:34 Duration of Surgery greater No 12/17/24 10:34 than 60 minutes Number of Risk Factors PONV Score Height & Weight Height & Weight: Anesthesia: Height & Weight Height 6 ft 12/21/24 08:15 Weight: 111 kg 12/21/24 08:15 Body Mass Index (BMI) 33.2 12/21/24 08:15 Respiratory Assessment Respiratory Assessment - asp net developer: Respiratory Tract Infection Hx - asp net developer Hx Respiratory Tract Infection No 12/17/24 10:34 STOP Sleep Apnea STOP Sleep Apnea - asp net developer: STOP Sleep Apnea - asp net developer Hx Hypertension Yes: CONTROLLED WITH MEDS 12/17/24 10:34 Hx Sleep Apnea No 12/17/24 10:34 CPAP BIPAP Do you snore loudly (louder No 12/17/24 10:34 than talking or can be heard Do you often feel tired/ No 12/17/24 10:34 fatigued/ sleepy during daytime? Has anyone observed you stop No 12/17/24 10:34 breathing during sleep? STOP Results Negative 12/17/24 10:34 QUESTION #5 FULL TEXT : Do you snore loudly (louder than talking or can be heard through closed doors)? 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 Specify any problems Hx of Preganancy in last 3 N/A 12/17/24 10:34 Months Nurse Filling Out Transfusion DSCHRIBER 12/17/24 10:34 & Questions: Date: 12/17/24 12/17/24 10:34 Time: 10:36 12/17/24 10:34 Patient unable to answer at this time (ie. confused, unrespo /Reproduction History /Reproductive History - asp net developer: /Reproductive Hx- asp net developer Hx Now No 12/17/24 10:34 Gestational Age (in weeks): EDC: Hx Hx Para Hx Section SAB No 12/17/24 10:34 PFSH Medical History Wears glasses Thyroid disease Pulmonary embolism High cholesterol History of Holter monitoring History of stress test History of echocardiogram Cardiology follow-up encounter History of irregular heartbeat History of colon polyps Acute myringitis, left ear URI (upper respiratory infection) Acute bronchitis, unspecified Ventricular fibrillation Nicotine use disorder Non-sustained ventricular tachycardia Chronic ischemic heart disease Paroxysmal atrial fibrillation Bicuspid aortic valve Cardiomyopathy Atherosclerotic heart disease of [place] coronary artery without angina pectoris History of left heart catheterization (LHC) (~09/19/21) Angina pectoris Abnormal electrocardiogram Hyperlipidemia Home Medications ?Medication ?Instructions ?Recorded ?Last Taken ?Type aspirin 81 mg tablet,delayed 81 mg PO DAILY heart heal th 11/06/18 12/17/24 History release ascorbic acid (vitamin C) 1,000 mg 1 g PO DAILY vitami n 09/13/21 Unknown History tablet cholecalciferol (vitamin D3) 50 50 mcg PO DAILY vitami n 09/13/21 Unknown History mcg (2,000 unit) tablet zinc gluconate 50 mg tablet 50 mg PO DAILY 01/03/22 Un known History fluticasone propionate 50 1 spray intranasal DAILY 10/02 Unknown History mcg/actuation nasal spray,suspension (Allergy Relief (fluticasone)) apixaban 5 mg tablet (Eliquis) 5 mg PO BID #180 tabs 0 11/26/24 12/17/24 Rx atorvastatin 40 mg tablet 40 mg PO QHS #90 tabs Unknown Rx metoprolol succinate 25 mg 25 mg PO DAILY #90 tabs 12/21/24 07:00 Rx tablet,extended release 24 hr sacubitril 24 mg-valsartan 26 mg 1 tab PO BID #180 tab s 11/26/24 12/21/24 07:00 Rx tablet (Entresto) levothyroxine 137 mcg tablet 137 mcg PO QDAY #30 tabs 11/29/24 12/21/24 07:00 Rx dapagliflozin propanediol 10 mg 10 mg PO DAILY 5 12/20/24 History tablet (Farxiga) Allergy/AdvReac Type Severity Reaction Status Date / Time latex Allergy Hives Verified 12/21/24 08:10 losartan AdvReac Intermediate Other Verified 12/21/24 08:10 lisinopril AdvReac Unknown Cough Verified 12/21/24 08:10 Family History Father Myocardial infarction CAD (coronary artery disease) Other Alzheimer's dementia NEUROPATHY NON DM Surgical History History of colonoscopy History of heart surgery (~11/27/21) History of coronary artery bypass surgery (~11/27/21) Social History Smoking Status: Current every day smoker tobacco type: cigarettes and smokeless tobacco Smokeless tobacco user: chewing tobacco alcohol intake: never substance use type: does not use caffeine: Yes Type: coffee Number of servings: 1 Review of Systems (Anesthesia) ROS Narrative System reviewed and no additional complaints, except as documented.
--- NOTE | 2024-12-21 08:45 | COLBX_PTH ---
PATIENT: SARA ODRAZ LOC: EN U#:[id number] AGE/SX: 69/M ROOM: RE12/21/[address]: Dr. Sunny Schumacher MD : 1955 BED: DIS: 12/21/2024 SPEC #: [id number] RECD: 12/22/24 07:23 STATUS: CHARLA NIRMALA #: [id number] PRAVEEN: 12/21/24 08:[address]: Sunny Schumacher DEPT: SURGICAL PATHOLOGY RECD BY: Mónica Garcias ENTERED: 12/22/24 09:25 SP TYPE: COLON BX OTHR DR: Clarita Iyer Tissues: A - Descending colon B - Sigmoid colon biopsy Procedures: Surgery Specimen Level IV HEADER OPERATION: Colonoscopy with polypectomy PRE-OP DIAGNOSIS: Screening for intestinal cancer TISSUE SUBMITTED: A- Descending colon polyp, B- Sigmoid colon polyp MICROSCOPIC DIAGNOSIS A. Descending colon polyp, polypectomy: Fragments of inflammatory polyp. B. Sigmoid colon polyp, polypectomy: Fragments of inflamed tubular adenoma. REID. 12/23/2024 MICROSCOPIC DESCRIPTION Slides are reviewed. GROSS DESCRIPTION A. Received in fixative is one container labeled with the patient's name and designated Descending colon polyp. The specimen consists of a cazares-pink polyp measuring 1 x 0.3 x 0.3cm. Also present in the container are one fragment of cazares soft tissue measuring 0.4 x 0.2 x 0.1cm. The entire specimen is submitted in one cassette. B. Received in fixative is one container labeled with the patient's name and designated Sigmoid colon polyp. The specimen consists of two irregular fragments of light cazares soft tissue that in aggregate measure 0.6 x 0.3 x 0.1 cm. The specimen is totally submitted in one cassette. REID. 12/22/2024 TC:5 CPT:27334q8
--- NOTE | 2024-12-21 09:36 | PCM.HP.STD ---
HPI - General General Date of Admission: 12/21/24 Date of Service: 12/21/24 Chief Complaint: colonoscopy HPI Narrative The patient is a 69-year-old male who is being seen today for surveillance colonoscopy. His last colonoscopy was about 6 years ago. This was performed by Dr. Schmitz. At that time a tubular adenoma was removed. He was told to follow-up in about 5 years. Since his last colonoscopy, he denies any GI issues or complaints. He denies any abdominal pain. He denies any black or tarry stools. No blood in the stools. No abdominal pain. He is not aware of any family history of colon polyps or colon cancers. [facility] Medical History Wears glasses Thyroid disease Pulmonary embolism High cholesterol History of Holter monitoring History of stress test History of echocardiogram Cardiology follow-up encounter History of irregular heartbeat History of colon polyps Acute myringitis, left ear URI (upper respiratory infection) Acute bronchitis, unspecified Ventricular fibrillation Nicotine use disorder Non-sustained ventricular tachycardia Chronic ischemic heart disease Paroxysmal atrial fibrillation Bicuspid aortic valve Cardiomyopathy Atherosclerotic heart disease of [place] coronary artery without angina pectoris History of left heart catheterization (LHC) (~09/19/21) Angina pectoris Abnormal electrocardiogram Hyperlipidemia Home Medications ?Medication ?Instructions ?Recorded ?Last Taken ?Type aspirin 81 mg tablet,delayed 81 mg PO DAILY heart health 11/06/18 12/17/24 History release ascorbic acid (vitamin C) 1,000 mg 1 g PO DAILY vitamin 09/13/21 Unknown History tablet cholecalciferol (vitamin D3) 50 50 mcg PO DAILY vitamin 09/13/21 Unknown History mcg (2,000 unit) tablet zinc gluconate 50 mg tablet 50 mg PO DAILY 01/03/22 Unknown History fluticasone propionate 50 1 spray intranasal DAILY 10/20/23 Unknown History mcg/actuation nasal spray,suspension (Allergy Relief (fluticasone)) apixaban 5 mg tablet (Eliquis) 5 mg PO BID #180 tabs 11/26/24 12/17/24 Rx atorvastatin 40 mg tablet 40 mg PO QHS #90 tabs 11/26/24 Unknown Rx metoprolol succinate 25 mg 25 mg PO DAILY #90 tabs 11/26/24 12/21/24 07:00 Rx tablet,extended release 24 hr sacubitril 24 mg-valsartan 26 mg 1 tab PO BID #180 tabs 11/26/24 12/21/24 07:00 Rx tablet (Entresto) levothyroxine 137 mcg tablet 137 mcg PO QDAY #30 tabs 11/29/24 12/21/24 07:00 Rx dapagliflozin propanediol 10 mg 10 mg PO DAILY 12/17/24 12/20/24 History tablet (Farxiga) Allergy/AdvReac Type Severity Reaction Status Date / Time latex Allergy Hives Verified 12/21/24 08:10 losartan AdvReac Intermediate Other Verified 12/21/24 08:10 lisinopril AdvReac Unknown Cough Verified 12/21/24 08:10 Family History Father Myocardial infarction CAD (coronary artery disease) Other Alzheimer's dementia NEUROPATHY NON DM Surgical History History of colonoscopy History of heart surgery (~11/27/21) History of coronary artery bypass surgery (~11/27/21) Social History Smoking Status: Current every day smoker tobacco type: cigarettes and smokeless tobacco Smokeless tobacco user: chewing tobacco alcohol intake: never substance use type: does not use caffeine: Yes Type: coffee Number of servings: 1 Vital Signs Vital Signs Vital Signs: 12/21/24 08:15 12/21/24 08:15 12/21/24 08:41 Temperature 97.6 F L 97.6 F L Temperature Source Temporal Pulse Rate 61 61 Respiratory Rate 16 16 Respiratory Pattern Normal Blood Pressure 109/61 109/61 Blood Pressure Mean 77 Blood Pressure Source Monitor Blood Pressure Position Sitting Blood Pressure Location Right Arm Pulse Ox 97 97 Oxygen Delivery Method Room Air Room Air Weight Weight: 244 lb 11.41 oz Body Mass Index (BMI) 33.2 Physical Exam Const alert, oriented x3 and no apparent distress Assessment & Plan Assessment/Plan (1) Screening for intestinal cancer: Charges/Coding Visit Charges Inpatient E&M: 75731 Init Hosp L1
--- NOTE | 2024-12-21 10:17 | OP.COLON_ITS ---
Patient Name: Marino Heaton Procedure Date: 12/21/2024 8:52 AM Date of : 1955 Age: 69 Procedure: Colonoscopy Indications: High risk colon cancer surveillance: Personal history of colonic polyps Providers: Sunny Schumacher MD Medicines: Monitored Anesthesia Care Patient Profile: Refer to note in patient chart for documentation of history and physical. Last Colonoscopy: 5 years ago. Complications: No immediate complications. Estimated blood loss: Minimal. Procedure: Pre-Anesthesia Assessment: - Prior to the procedure, a History and Physical was performed, and patient medications and allergies were reviewed. The patient's tolerance of previous anesthesia was also reviewed. The risks and benefits of the procedure and the sedation options and risks were discussed with the patient. All questions were answered, and informed consent was obtained. Prior Anticoagulants: The patient has taken no anticoagulant or antiplatelet agents. ASA Grade Assessment: II - A patient with mild systemic disease. After reviewing the risks and benefits, the patient was deemed in satisfactory condition to undergo the procedure. After I obtained informed consent, the scope was passed under direct vision. Throughout the procedure, the patient's blood pressure, pulse, and oxygen saturations were monitored continuously. The colonoscope was introduced through the anus and advanced to the cecum, identified by the appendiceal orifice, ileocecal valve and palpation. The ileocecal valve, appendiceal orifice, and rectum were photographed. The entire colon was well visualized. The colonoscopy was performed without difficulty. The patient tolerated the procedure well. The quality of the bowel preparation was adequate. Moderate Sedation: See the other procedure note for documentation of moderate sedation with intraservice time. Scope In: 9:47:02 AM Scope Withdrawal Time 0 hours 12 minutes 16 seconds Scope Out: 10:11:31 AM Total Procedure Duration Time 0 hours 24 minutes 29 seconds Findings: The perianal and digital rectal examinations were normal. Multiple small-mouthed diverticula were found in the sigmoid colon. Estimated blood loss: none. Non-bleeding internal hemorrhoids were found during retroflexion. The hemorrhoids were mild. A 3 mm polyp was found in the descending colon. The polyp was semi-sessile. The polyp was removed with a cold biopsy forceps. Resection and retrieval were complete. Verification of patient identification for the specimen was done by the nurse using the patient's name, date and medical record number. Estimated blood loss was minimal. A 7 mm polyp was found in the sigmoid colon. The polyp was pedunculated. The polyp was removed with a hot snare. Resection and retrieval were complete. Verification of patient identification for the specimen was done by the nurse using the patient's name, date and medical record number. Estimated blood loss was minimal. The exam was otherwise without abnormality on direct and retroflexion views. Impression: - Diverticulosis in the sigmoid colon. - Non-bleeding internal hemorrhoids. - One 3 mm polyp in the descending colon, removed with a cold biopsy forceps. Resected and retrieved. - One 7 mm polyp in the sigmoid colon, removed with a hot snare. Resected and retrieved. - The examination was otherwise normal on direct and retroflexion views. Recommendation: - Discharge patient to home (ambulatory). - High fiber diet. - Await pathology results. - Repeat colonoscopy in 5 years for surveillance. - Return to my office PRN. - Continue present medications. Procedure Code(s): --- Professional --- 23077, Colonoscopy, flexible; with removal of tumor(s), polyp(s), or other lesion(s) by snare technique 62534, 59, Colonoscopy, flexible; with biopsy, single or multiple Diagnosis Code(s): --- Professional --- Z86.010, Personal history of colonic polyps K64.8, Other hemorrhoids D12.4, Benign neoplasm of descending colon K57.30, Diverticulosis of large intestine without perforation or abscess without bleeding D12.5, Benign neoplasm of sigmoid colon CPT copyright 2021 [employer]. All rights reserved. The codes documented in this report are preliminary and upon supportability engineer review may be revised to meet current compliance requirements. Sunny Schumacher MD 12/21/2024 10:17:19 AM This report has been signed electronically. Number of Addenda: 0 Note Initiated On: 12/21/2024 8:52 AM
--- NOTE | 2024-12-21 10:18 | OP.CCLET_ITS ---
12/21/2024 Clarita Iyer Re : Colonoscopy procedure for Marino Heaton Lisa Iyer This procedure was performed on Saturday, December 21, 2024. My impressions and recommendations are as follows: Impressions : - Diverticulosis in the sigmoid colon. - Non-bleeding internal hemorrhoids. - One 3 mm polyp in the descending colon, removed with a cold biopsy forceps. Resected and retrieved. - One 7 mm polyp in the sigmoid colon, removed with a hot snare. Resected and retrieved. - The examination was otherwise normal on direct and retroflexion views. Recommendations : - Discharge patient to home (ambulatory). - High fiber diet. - Await pathology results. - Repeat colonoscopy in 5 years for surveillance. - Return to my office PRN. - Continue present medications. My findings are described in the full procedure note, which is enclosed. If I can be of further assistance, please feel free to contact me at . Sincerely, Sunny Schumacher MD 12/21/2024 10:17:19 AM This report has been signed electronically.
--- NOTE | 2024-12-21 10:20 | PCM.POST.ANE ---
Anesthesia: Postop Eval I Current Vital Signs Temperature: 97 F Pulse Rate: 60 Blood Pressure: 77/57 Respiratory Rate: 16 Pulse Ox: 97 Oxygen Delivery Method: Room Air Assessment Airway patent: Yes Spontaneous unlabored respirations: Yes Mental status: Asleep nausea: No Vomiting: No Anesthesia Complication: No Fluid Hydration Crystalloid volume administer (ml): 70 Total IV fluid infused: 70 Progress Note Anesthesia document: Postop Eval 1 completed: Yes
--- NOTE | 2024-12-21 11:12 | PCM.POSTANE2 ---
Anesthesia Postop Eval I Sum Postop Eval Completion status Anesthesia document: Postop Eval 1 completed: Yes Anesthesia Postop Eval I Summary Anesthesia Postop Eval I Summary: Anesthesia Postop Eval I: Assessment Summary Airway patent Yes 12/21/24 10:21 [email or web address] Spontaneous unlabored Yes 12/21/24 10:21 [email or web address] respirations Mental status Asleep 12/21/24 10:21 [email or web address] nausea No 12/21/24 10:21 [email or web address] Vomiting No 12/21/24 10:21 [email or web address] Anesthesia Postop Eval I: Fluid Summary Crystalloid volume administer 70 12/21/24 10:21 [email or web address] (ml) Colloids volume administered ( ml) Blood Product volume administered (ml) Total IV fluid infused 70 12/21/24 10:21 [email or web address] Anesthesia Postop Eval I: Summary Notes Anesthesia Complication No 12/21/24 10:21 [email or web address] Anesthesia Complication Comment: Post-operative progress note Anesthesia: Postop Eval II Evaluation Mental status: Awake and Calm Pain Level: 0 nausea: No Vomiting: No Progress Note Post-operative progress note: Patient had significant hypotension in the recovery room. 500 cc bolus given to augment blood pressure and combat dehydration. With time blood pressures did improve. Complications Anesthesia Complication: No
== END 2024-12-21 11:30 | disposition home or self-care (01) ==
LOC: EN 07:46 → AC 07:48
PROVIDERS: Visit Provider Surgery
PROC: 0DJD8ZZ Inspection of Lower Intestinal Tract, Via Natural or Artificial Opening Endoscopic (ICD-10-PCS; CPT 45378; principal; 2024-12-21 08:40)
DX: Z12.11 Encounter for screening for malignant neoplasm of colon (principal); I48.0 Paroxysmal atrial fibrillation; K51.40 Inflammatory polyps of colon without complications; I42.9 Cardiomyopathy, unspecified; K64.8 Other hemorrhoids; I25.119 Atherosclerotic heart disease of native coronary artery with unspecified angina pectoris; E78.00 Pure hypercholesterolemia, unspecified; K57.30 Diverticulosis of large intestine without perforation or abscess without bleeding; D12.5 Benign neoplasm of sigmoid colon; Q23.81 Bicuspid aortic valve; F17.210 Nicotine dependence, cigarettes, uncomplicated; F17.220 Nicotine dependence, chewing tobacco, uncomplicated; Z79.01 Long term (current) use of anticoagulants; Z79.82 Long term (current) use of aspirin; Z79.890 Hormone replacement therapy; Z79.899 Other long term (current) drug therapy; Z86.0100 Personal history of colon polyps, unspecified
CPT/HCPCS: 45385; 45380; 88305; A4216; J2405

== ENCOUNTER → 2025-02-02 | Outpatient (CLI) | payer MEDICARE, OTHER, SELFPAY ==
[2022-06-24 14:39] VITALS: BMI 33.5
[2025-02-02 16:39] LABS: Absolute Lymphocyte Count 1.04 X10^3/uL (0.83-4.51); Absolute Neutrophil Count 3.7 X10^3/uL (2.0-7.7); Basophil# 0.04 X10^3/uL; Basophil% 0.7 % (0-1); Eosinophil# 0.04 X10^3/uL; Eosinophils% 0.7 % (0-5); Hemoglobin 15.3 g/dL (13.0-16.5); Lymphocyte # 1.04 X10^3/ul (0.83-4.51); Lymphocyte % 19.3 % (19-41); Mean Corp Hgb Conc 34.8 g/dL (32-36); Mean Corpuscular Volume 89.2 fL (80-94); Mean Platelet Vol. 9.7 fl (6.2-12.0); Monocyte# 0.54 X10^3/uL; NRBC Flagged by Analyzer 0 % (0-5); Neutrophil # 3.71 X10^3/uL (2.7-7.7); Neutrophil % 68.9 % (47-70); Platelet Count 176 K/mm3 (150-450); RBC Distribution Width CV 12.8 % (11.6-14.6); RBC Distribution Width SD 41.6 fl (35.1-43.9); Red Blood Count 4.93 M/mm3 (4.6-6.2); White Blood Count 5.4 K/mm3 (4.4-11.0)
[2025-02-02 20:25] LABS: ALB/GLOB Ratio 1.7 RATIO (0.9-2.4); AST(SGOT) 26 U/L (<=37); Alanine Aminotransfer ALT/SGPT 34 U/L (<=46); Albumin, Serum 4.1 g/dL (3.4-4.8); Alkaline Phosphatase 108 U/L (40-129); Anion Gap 10 (5-15); BUN 17 mg/dL (4-19); BUN/Creat Ratio 16.3 RATIO (10-20); Calcium,Total 9.1 mg/dL (7.6-11.0); Carbon Dioxide 23.8 mmol/L (21.0-32.0); Chloride 107 mmol/L (98-108); Creatinine, Serum 1.04 mg/dL (0.70-1.20); EST Glomerular Filtration Rate 79 (>60); Globulin 2.5 g/dL (2.2-4.2); Glucose 97 mg/dL (70-99); Potassium 4.4 mmol/L (3.3-5.1); Protein, Total 6.6 g/dL (5.9-8.4); Sodium Level 141 mmol/L (133-145); Total Bilirubin 0.86 mg/dL (0.00-1.30); Vitamin B12 358 pg/mL (180-914); Vitamin D,25 Hydroxy 58.1 ng/mL (30-100)
[2025-02-02 20:38] LABS: Cholesterol 161 mg/dL (<=200); High Density Lipoprotein 46 mg/dL; Low Density Lipoprotein Calc. 91 mg/dL; Triglycerides 117 mg/dL; Very Low Density Lipoprotein 23 mg/dL (5-40); cholesterol:hdl ratio screen 3.48
[2025-02-02 20:47] LABS: Hemoglobin A1c 5.6 % (<=5.6)
== END | disposition home or self-care (01) ==
LOC: VSLAB 14:34
PROVIDERS: PCP Nurse Practitioner Family; Visit Provider Nurse Practitioner Family
DX: I10 Essential (primary) hypertension (principal); E03.9 Hypothyroidism, unspecified; E78.5 Hyperlipidemia, unspecified; E55.9 Vitamin D deficiency, unspecified; Z95.1 Presence of aortocoronary bypass graft
CPT/HCPCS: 36415; 80053; 80061; 82306; 82607; 83036; 84443; 85025

== ENCOUNTER → 2025-07-27 | Outpatient (CLI) | payer MEDICARE, OTHER, SELFPAY ==
[2022-06-24 14:39] VITALS: BMI 33.5
[2025-07-27 12:48] LABS: T4 Total, Thyroxin 8.2 ug/dL (4.5-12.1)
== END | disposition home or self-care (01) ==
LOC: VSLAB 09:44
PROVIDERS: PCP Nurse Practitioner Family; Referring Provider Nurse Practitioner Family; Visit Provider Nurse Practitioner Family
DX: I10 Essential (primary) hypertension (principal); E03.9 Hypothyroidism, unspecified; R73.03 Prediabetes
CPT/HCPCS: 36415; 83036; 84436; 84443